=== PATIENT | male | born 1950 | race American Indian/Alaskan Native ===

== ENCOUNTER 2016-05-28 07:37 | Emergency (ER) | payer MEDICARE ==
--- NOTE | 2016-05-28 10:59 | Emergency Department Report ---
ED Back Pain/Injury HPI - General Chief Complaint: Back Pain/Injury Stated Complaint: BACK PAIN Time Seen by Provider: 05/28/16 10:58 Source: patient Limitations: No Limitations - History of Present Illness Initial Comments: 65-year-old male past medical history diabetes, DVT on Coumadin presents with complaint of right-sided back strain status post straining his back while gardening 3 days ago. Patient states he feels bothersome achiness and soreness in his right side back. Denies any falls no direct trauma denies any fever or chills no dysuria no hematuria reported by patient. Alert and oriented 3 not in acute distress denies any other injuries. States he was pulling a rake when he felt spasming and severe pain in his right side back. She denies any upper or lower extremity paresthesias denies any saddle paresthesias denies any loss of bladder or bowel control. Patient is fully ambulatory without any assistance. MD Complaint: back pain Onset/Timin -: days(s) Similar Symptoms Previously: No Place: home Radiation: none Severity: moderate Severity scale (0 -10): 6 Quality: sharp Improves With: immobilization Worsens With: none Context: while lifting, turning/twisting Associated Symptoms: denies other symptoms - Related Data Home Medications Medication Instructions Recorded Confirmed Last Taken Hydrochlorothiazide 12.5 mg PO QDAY 02/05/13 09/21/15 11/24/14 Insulin Aspart Prot/Aspart 45 unit SQ QPM 02/05/13 09/21/15 11/23/14 [NovoLOG Mix 70/30 VIAL] Insulin Aspart Prot/Aspart 70 units SC QAM 02/05/13 09/21/15 11/24/14 [NovoLOG Mix 70/30 VIAL] Lisinopril [Zestril TAB] 20 mg PO QDAY 02/05/13 09/21/15 11/24/14 Simvastatin 40 mg PO QHS 02/05/13 09/21/15 11/23/14 metFORMIN [Glucophage] 500 mg PO BID 02/05/13 09/21/15 11/24/14 Febuxostat (Nf) [Uloric (Nf)] 40 mg PO PRN 09/21/15 09/21/15 Unknown Insulin Lispro [HumaLOG VIAL] 3 units SQ AC 09/21/15 09/21/15 Unknown [place]-3/Dha/Epa/Fish Oil [[place]-3 1 gram PO DAILY 09/21/15 09/21/15 Unknown Fish Oil 1,000 mg Sftg] Tamsulosin [Flomax] 0.4 mg PO DAILY 09/21/15 09/21/15 Unknown Warfarin [Coumadin] 0.5 tab PO 2XW 09/21/15 09/21/15 Unknown Warfarin [Coumadin] 3 tab PO 5XW 09/21/15 09/21/15 Unknown Previous Rx's Medication Instructions Recorded Last Taken Type Colchicine [Colcrys] 0.6 mg PO BID #10 tab 09/21/15 Unknown Rx Dexamethasone [Decadron] 4 mg PO DAILY #5 tablet 09/21/15 Unknown Rx HYDROcodone/APAP 5-325 [[place] 1 each PO Q6HR PRN #12 tablet 09/21/15 Unknown Rx 5/325] Acetaminophen [Acetaminophen TAB] 500 mg PO Q6HR PRN #25 tablet 05/28/16 Unknown Rx Cyclobenzaprine [Flexeril] 10 mg PO TID PRN #12 tablet 05/28/16 Unknown Rx Allergies Allergy/AdvReac Type Severity Reaction Status Date / Time No Known Allergies Allergy Verified 05/08/14 08:39 ED Review of Systems ROS: Stated complaint: BACK PAIN Other details as noted in HPI Constitutional: denies: chills, fever Eyes: denies: eye pain, eye discharge, vision change ENT: denies: ear pain, throat pain Respiratory: denies: cough, shortness of breath, wheezing Cardiovascular: denies: chest pain, palpitations Endocrine: no symptoms reported Gastrointestinal: denies: abdominal pain, nausea, diarrhea Genitourinary: denies: urgency, dysuria Musculoskeletal: back pain. denies: joint swelling, arthralgia Skin: denies: rash, lesions Neurological: denies: headache, weakness, paresthesias Psychiatric: denies: anxiety, depression Hematological/Lymphatic: denies: easy bleeding, easy bruising ED Past Medical Hx - Past Medical History Previous Medical History?: Yes Hx Hypertension: Yes Hx Heart Attack/AMI: No Hx Congestive Heart Failure: No Hx Diabetes: No Hx Deep Vein Thrombosis: Yes Hx Pulmonary Embolism: Yes Hx Liver Disease: No Hx Renal Disease: No Hx Seizures: No Hx Kidney Stones: No Hx Asthma: No Hx COPD: No Hx Tuberculosis: No Hx Dementia: No Hx HIV: No Additional medical history: high cholesterol. PE. DVT - Surgical History Past Surgical History?: No Hx Coronary Stent: No Hx Pacemaker: No Hx Internal Defibrillator: No - Social History Smoking Status: Former Smoker Substance Use Type: None - Medications Home Medications: Home Medications Medication Instructions Recorded Confirmed Last Taken Type Hydrochlorothiazide 12.5 mg PO QDAY 02/05/13 09/21/15 11/24/14 History Insulin Aspart Prot/Aspart 45 unit SQ QPM 02/05/13 09/21/15 11/23/14 History [NovoLOG Mix 70/30 VIAL] Insulin Aspart Prot/Aspart 70 units SC QAM 02/05/13 09/21/15 11/24/14 History [NovoLOG Mix 70/30 VIAL] Lisinopril [Zestril TAB] 20 mg PO QDAY 02/05/13 09/21/15 11/24/14 History Simvastatin 40 mg PO QHS 02/05/13 09/21/15 11/23/14 History metFORMIN [Glucophage] 500 mg PO BID 02/05/13 09/21/15 11/24/14 History Colchicine [Colcrys] 0.6 mg PO BID #10 tab 09/21/15 Unknown Rx Dexamethasone [Decadron] 4 mg PO DAILY #5 tablet 09/21/15 Unknown Rx Febuxostat (Nf) [Uloric (Nf)] 40 mg PO PRN 09/21/15 09/21/15 Unknown History HYDROcodone/APAP 5-325 [[place] 1 each PO Q6HR PRN #12 tablet 09/21/15 Unknown Rx 5/325] Insulin Lispro [HumaLOG VIAL] 3 units SQ AC 09/21/15 09/21/15 Unknown History [place]-3/Dha/Epa/Fish Oil [[place]-3 1 gram PO DAILY 09/21/15 09/21/15 Unknown History Fish Oil 1,000 mg Sftg] Tamsulosin [Flomax] 0.4 mg PO DAILY 09/21/15 09/21/15 Unknown History Warfarin [Coumadin] 0.5 tab PO 2XW 09/21/15 09/21/15 Unknown History Warfarin [Coumadin] 3 tab PO 5XW 09/21/15 09/21/15 Unknown History Acetaminophen [Acetaminophen TAB] 500 mg PO Q6HR PRN #25 tablet 05/28/16 Unknown Rx Cyclobenzaprine [Flexeril] 10 mg PO TID PRN #12 tablet 05/28/16 Unknown Rx ED Physical Exam - General Limitations: No Limitations General appearance: alert, in no apparent distress - Head Head exam: Present: atraumatic, normocephalic - Eye Eye exam: Present: normal appearance, PERRL, EOMI - ENT ENT exam: Present: mucous membranes moist - Neck Neck exam: Present: normal inspection - Respiratory Respiratory exam: Present: normal lung sounds bilaterally. Absent: respiratory distress - Cardiovascular Cardiovascular Exam: Present: regular rate, normal rhythm. Absent: systolic murmur, diastolic murmur, rubs, gallop - GI/Abdominal GI/Abdominal exam: Present: soft, normal bowel sounds - Rectal Rectal exam: Present: deferred - Extremities Exam Extremities exam: Present: normal inspection, full ROM - Back Exam Back exam: Present: normal inspection, full ROM, CVA tenderness (R), muscle spasm, paraspinal tenderness (reproducible tenderness in posterior axillary line mid back region mild right-sided flank tenderness on percussion. no abd. wall, flank or back ecchymosis) - Neurological Exam Neurological exam: Present: alert, oriented X3 - Psychiatric Psychiatric exam: Present: normal affect, normal mood - Skin Skin exam: Present: warm, dry, intact, normal color. Absent: rash ED Course Vital Signs 05/28/16 05/28/16 08:16 11:30 Temperature 98.6 F Pulse Rate 67 Respiratory 20 20 Rate Blood Pressure 113/60 O2 Sat by Pulse 100 Oximetry ED Medical Decision Making - Lab Data Result diagrams: 05/28/16 11:14 05/28/16 11:14 - Medical Decision Making A/P: Back muscle strain 1-Tylenol and Flexeril when necessary 2-I discussed case with Dr. Gongora reviewed all labs and CT with Dr. cam before discharge no evidence of retroperitoneal bleed 3-patient has subtherapeutic INR at 1.6 patient claims that he is compliant with his Coumadin I encouraged him to take his Coumadin as scheduled and to follow up with his primary doctor 4-patient's vital signs stable before discharge- Critical care attestation.: If time is entered above; I have spent that time in minutes in the direct care of this critically ill patient, excluding procedure time. ED Disposition Clinical Impression: Strain of muscle, fascia and tendon of lower back, initial encounter Muscle strain of right upper back Qualifiers: Encounter type: initial encounter Qualified Code(s): S29.012A - Strain of muscle and tendon of back wall of thorax, initial encounter Disposition: DISCHARGED TO HOME OR SELFCARE Is pt being admited?: No Does the pt Need Aspirin: No Condition: Stable Instructions: Muscle Strain (ED), Low Back Strain (ED) Prescriptions: Acetaminophen [Acetaminophen TAB] 500 mg PO Q6HR PRN #25 tablet PRN Reason: Pain Cyclobenzaprine [Flexeril] 10 mg PO TID PRN #12 tablet PRN Reason: Muscle Spasm Referrals: ERIC LAMAR JR, MD [Staff Physician] - 3-5 Days [facility] [Outside] - 3-5 Days Time of Disposition: 15:55
[2016-05-28] MEDS ORDERED: TYLENOL PO ONE (11:01)
[2016-05-28 11:45] LABS: Basophils % (Auto) 0.5 % (0.0-1.8); Eosinophils % (Auto) 2.1 % (0.0-4.3); Hematocrit 36.4 % (35.5-45.6); Hemoglobin 11.6 gm/dl (11.8-15.2); Mean Corpuscular HGB Conc 32 % (32-34); Mean Corpuscular Hemoglobin 28 pg (28-32); Mean Corpuscular Volume 88 fl (84-94); Platelet Count 347 K/mm3 (140-440); Red Blood Count 4.15 M/mm3 (3.65-5.03); Red Cell Distribution Width 15.3 % (13.2-15.2); White Blood Count 7.7 K/mm3 (4.5-11.0)
[2016-05-28 11:56] LABS: BUN/Creatinine Ratio 20.58; Calcium 9.2 mg/dL (8.4-10.2); Chloride 102.3 mmol/L (98-107); Potassium 4.4 mmol/L (3.6-5.0)
[2016-05-28 11:57] LABS: Alanine Aminotransferase 17 units/L (7-56); Albumin 3.3 g/dL (3.9-5); Albumin/Globulin Ratio 0.8 %; Alkaline Phosphatase 71 units/L (35-129); Bilirubin,Direct < 0.2 mg/dL (0-0.2); Bilirubin,Total 0.3 mg/dL (0.1-1.2); Total Protein 7.5 g/dL (6.3-8.2)
[2016-05-28 11:59] LABS: INR 1.6 (0.87-1.13)
[2016-05-28 12:33] LABS: Bilirubin,Urine NEG (Negative); Blood,Urine NEG (Negative); Ketones,Urine NEG (Negative); Leukocyte Esterase,Urine NEG (Negative); Mucus,Urine FEW /HPF; Nitrite,Urine NEG (Negative); WBC,Urine < 1.0 /HPF (0.0-6.0)
--- NOTE | 2016-05-28 12:54 | Cat Scan Report ---
CT ABDOMEN AND PELVIS WITHOUT CONTRAST: 05/28/16 CLINICAL:Right flank pain. TECHNIQUE: Volumetric acquisition and 1.25 millimeter scan reconstructions from the lung bases through the iliac crest. The study was performed without oral contrast. FINDINGS: Abdomen:Normal size kidneys with nondilated renal collecting systems and ureters. No urinary calculus identified. Bilateral nonspecific perinephric stranding. A 1.9 cm cyst in the midportion of the right kidney and a less than 1 cm left upper pole renal cyst. Borderline large liver but normal liver density in the liver mass. The gallbladder and bile ducts are normal. Normal stomach and duodenum. The pancreas is fatty replaced but otherwise unremarkable. The spleen is normal. Normal adrenal glands. Mild aortic ossification and tortuosity. The inferior vena cava is normal. The small bowel and colon are normal. The appendix is normal. No ascites and no pneumoperitoneum. Pelvis: Normal urinary bladder. Moderate prostate enlargement. Normal rectum and sigmoid colon. No pelvic fluid or lymphadenopathy. IMPRESSION: 1. Nonspecific bilateral perinephric stranding. 2. No urinary calculus. 3. Borderline large liver. 4. Bilateral small renal cysts. 5. Prostate enlargement.
[2016-05-28 16:06] VITALS: BP 143/87
== END 2016-05-28 16:04 | disposition home or self-care (01) ==
LOC: ED 07:37
DX: S39.012A Strain of muscle, fascia and tendon of lower back, initial encounter (principal); S29.012A Strain of muscle and tendon of back wall of thorax, initial encounter; I10 Essential (primary) hypertension; E11.9 Type 2 diabetes mellitus without complications; Z86.718 Personal history of other venous thrombosis and embolism; Z86.711 Personal history of pulmonary embolism; E78.00 Pure hypercholesterolemia, unspecified; Z87.891 Personal history of nicotine dependence; X58.XXXA Exposure to other specified factors, initial encounter; Y93.89 Activity, other specified; Y99.8 Other external cause status; Y92.89 Other specified places as the place of occurrence of the external cause
CPT/HCPCS: 36415; 74176; 80048; 80074; 81001; 82550; 85025; 85610; 87086

== ENCOUNTER 2016-07-27 07:30 | Emergency (ER) | payer MEDICARE ==
[2016-07-27 07:57] VITALS: BP 144/71
[2016-07-27] MEDS ORDERED: MOTRIN PO ONE (10:27)
--- NOTE | 2016-07-27 10:43 | XRay Report ---
RIGHT WRIST, 2 VIEWS History: Right wrist pain and swelling. Findings: Mild diffuse soft tissue swelling is identified. 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 No evidence for fracture, dislocation or ligamentous injury. Impression: Degenerative changes. Soft tissue swelling. No acute injury is appreciated.
--- NOTE | 2016-07-27 10:44 | XRay Report ---
RIGHT HAND, 2 VIEWS History: Right hand pain and swelling. Findings: Mild diffuse soft tissue swelling is suspected. The bony structures and joint spaces of the right hand are within normal limits. No fracture, malalignment or bony erosions. Impression: Nonspecific soft tissue swelling.
== END 2016-07-27 11:25 | disposition home or self-care (01) ==
LOC: ED 07:30
DX: M10.9 Gout, unspecified (principal); I10 Essential (primary) hypertension; E78.00 Pure hypercholesterolemia, unspecified; Z86.718 Personal history of other venous thrombosis and embolism; Z86.711 Personal history of pulmonary embolism; Z87.891 Personal history of nicotine dependence; Z79.01 Long term (current) use of anticoagulants
CPT/HCPCS: 73100; 73120; 96372; 99283; J2920

== ENCOUNTER 2016-09-09 11:58 | Inpatient (IN) | payer MEDICARE ==
[2016-09-09 13:00] LABS: Basophils % (Auto) 0.6 % (0.0-1.8); Eosinophils % (Auto) 1.4 % (0.0-4.3); Hematocrit 35.3 % (35.5-45.6); Hemoglobin 11.2 gm/dl (11.8-15.2); Mean Corpuscular HGB Conc 32 % (32-34); Mean Corpuscular Hemoglobin 27 pg (28-32); Mean Corpuscular Volume 85 fl (84-94); Platelet Count 331 K/mm3 (140-440); Red Blood Count 4.13 M/mm3 (3.65-5.03); Red Cell Distribution Width 18.4 % (13.2-15.2); White Blood Count 11.1 K/mm3 (4.5-11.0)
[2016-09-09 13:17] LABS: Albumin 3.7 g/dL (3.9-5); Albumin/Globulin Ratio 1.2 %; BUN/Creatinine Ratio 18.1; Bilirubin,Total 0.3 mg/dL (0.1-1.2); Calcium 8.8 mg/dL (8.4-10.2); Chloride 103.1 mmol/L (98-107); Potassium 5.6 mmol/L (3.6-5.0); Total Protein 6.7 g/dL (6.3-8.2)
[2016-09-09 13:19] LABS: INR 1.62 (0.87-1.13)
[2016-09-09 13:20] LABS: Partial Thromboplastin Time 33.9 Sec. (24.2-36.6)
--- NOTE | 2016-09-09 13:36 | Emergency Department Report ---
ED General Adult HPI - General Chief complaint: Weakness Stated complaint: LOW BP Time Seen by Provider: 09/09/16 13:01 Source: patient, family Mode of arrival: Wheelchair Limitations: No Limitations - History of Present Illness Initial comments: 66-year-old male presents to the emergency department for evaluation of low blood pressure. Patient says for the past 4 days he has been feeling "sluggish ". He was seen by his primary care physician 2 days ago and was told to cut his lisinopril dose in half. Patient states he has done this the past 2 days. He states that yesterday his blood pressure was doing well, but this morning his low pressure was 89/36 at home. He denies chest pain, difficulty breathing , or lightheadedness. He is also complaining of gout pain in his left foot. Patient describes achy pain for the past 2 days. He has been taking his medication for this and states it is somewhat better. There are no other complaints. -: Gradual, days(s) (4) Location: left, lower extremity Radiation: non-radiation Severity scale (0 -10): 6 Quality: aching Consistency: constant Improves with: medication Worsens with: none Associated Symptoms: denies other symptoms Treatments Prior to Arrival: none - Related Data Home Medications Medication Instructions Recorded Confirmed Last Taken Hydrochlorothiazide 12.5 mg PO QDAY 02/05/13 09/21/15 11/24/14 Insulin Aspart Prot/Aspart(Nf) 45 unit SQ QPM 02/05/13 09/21/15 11/23/14 [NovoLOG Mix 70/30 VIAL] Insulin Aspart Prot/Aspart(Nf) 70 units SC QAM 02/05/13 09/21/15 11/24/14 [NovoLOG Mix 70/30 VIAL] Lisinopril [Zestril TAB] 20 mg PO QDAY 02/05/13 09/21/15 11/24/14 Simvastatin 40 mg PO QHS 02/05/13 09/21/15 11/23/14 metFORMIN [Glucophage] 500 mg PO BID 02/05/13 09/21/15 11/24/14 Febuxostat (Nf) [Uloric (Nf)] 40 mg PO PRN 09/21/15 09/21/15 Unknown Insulin Lispro [HumaLOG VIAL] 3 units SQ AC 09/21/15 09/21/15 Unknown [place]-3/Dha/Epa/Fish Oil [[place]-3 1 gram PO DAILY 09/21/15 09/21/15 Unknown Fish Oil 1,000 mg Sftg] Tamsulosin [Flomax] 0.4 mg PO DAILY 09/21/15 09/21/15 Unknown Warfarin [Coumadin] 0.5 tab PO 2XW 09/21/15 09/21/15 Unknown Warfarin [Coumadin] 3 tab PO 5XW 09/21/15 09/21/15 Unknown Previous Rx's Medication Instructions Recorded Last Taken Type Colchicine [Colcrys] 0.6 mg PO BID #10 tab 09/21/15 Unknown Rx Dexamethasone [Decadron] 4 mg PO DAILY #5 tablet 09/21/15 Unknown Rx HYDROcodone/APAP 5-325 [[place] 1 each PO Q6HR PRN #12 tablet 09/21/15 Unknown Rx 5/325] Acetaminophen [Acetaminophen TAB] 500 mg PO Q6HR PRN #25 tablet 05/28/16 Unknown Rx Cyclobenzaprine [Flexeril] 10 mg PO TID PRN #12 tablet 05/28/16 Unknown Rx Ibuprofen [Motrin 600 MG tab] 600 mg PO Q8H PRN #15 tablet 07/27/16 Unknown Rx predniSONE [Deltasone] 40 mg PO QDAY 5 Days 07/27/16 Unknown Rx Allergies Allergy/AdvReac Type Severity Reaction Status Date / Time No Known Allergies Allergy Verified 07/27/16 07:52 ED Review of Systems ROS: Stated complaint: LOW BP Other details as noted in HPI Comment: All other systems reviewed and negative Constitutional: see HPI Musculoskeletal: arthralgia (left foot) ED Past Medical Hx - Past Medical History Previous Medical History?: Yes Hx Hypertension: Yes Hx Heart Attack/AMI: No Hx Congestive Heart Failure: No Hx Diabetes: No Hx Deep Vein Thrombosis: Yes Hx Pulmonary Embolism: Yes Hx Liver Disease: No Hx Renal Disease: No Hx Seizures: No Hx Kidney Stones: No Hx Asthma: No Hx COPD: No Hx Tuberculosis: No Hx Dementia: No Hx HIV: No Additional medical history: high cholesterol. gout - Surgical History Past Surgical History?: No Hx Coronary Stent: No Hx Pacemaker: No Hx Internal Defibrillator: No - Family History Family history: no significant - Social History Smoking Status: Former Smoker Substance Use Type: Non Opiate Pain, Prescribed - Medications Home Medications: Home Medications Medication Instructions Recorded Confirmed Last Taken Type Hydrochlorothiazide 12.5 mg PO QDAY 02/05/13 09/21/15 11/24/14 History Insulin Aspart Prot/Aspart(Nf) 45 unit SQ QPM 02/05/13 09/21/15 11/23/14 History [NovoLOG Mix 70/30 VIAL] Insulin Aspart Prot/Aspart(Nf) 70 units SC QAM 02/05/13 09/21/15 11/24/14 History [NovoLOG Mix 70/30 VIAL] Lisinopril [Zestril TAB] 20 mg PO QDAY 02/05/13 09/21/15 11/24/14 History Simvastatin 40 mg PO QHS 02/05/13 09/21/15 11/23/14 History metFORMIN [Glucophage] 500 mg PO BID 02/05/13 09/21/15 11/24/14 History Colchicine [Colcrys] 0.6 mg PO BID #10 tab 09/21/15 Unknown Rx Dexamethasone [Decadron] 4 mg PO DAILY #5 tablet 09/21/15 Unknown Rx Febuxostat (Nf) [Uloric (Nf)] 40 mg PO PRN 09/21/15 09/21/15 Unknown History HYDROcodone/APAP 5-325 [[place] 1 each PO Q6HR PRN #12 tablet 09/21/15 Unknown Rx 5/325] Insulin Lispro [HumaLOG VIAL] 3 units SQ AC 09/21/15 09/21/15 Unknown History [place]-3/Dha/Epa/Fish Oil [[place]-3 1 gram PO DAILY 09/21/15 09/21/15 Unknown History Fish Oil 1,000 mg [facility]] Tamsulosin [Flomax] 0.4 mg PO DAILY 09/21/15 09/21/15 Unknown History Warfarin [Coumadin] 0.5 tab PO 2XW 09/21/15 09/21/15 Unknown History Warfarin [Coumadin] 3 tab PO 5XW 09/21/15 09/21/15 Unknown History Acetaminophen [Acetaminophen TAB] 500 mg PO Q6HR PRN #25 tablet 05/28/16 Unknown Rx Cyclobenzaprine [Flexeril] 10 mg PO TID PRN #12 tablet 05/28/16 Unknown Rx Ibuprofen [Motrin 600 MG tab] 600 mg PO Q8H PRN #15 tablet 07/27/16 Unknown Rx predniSONE [Deltasone] 40 mg PO QDAY 5 Days 07/27/16 Unknown Rx ED Physical Exam - General Limitations: No Limitations General appearance: alert, in no apparent distress - Head Head exam: Present: atraumatic, normocephalic - Eye Eye exam: Present: normal appearance, PERRL, EOMI - ENT ENT exam: Present: normal exam, normal orophraynx, mucous membranes moist - Neck Neck exam: Present: normal inspection, full ROM. Absent: tenderness - Respiratory Respiratory exam: Present: normal lung sounds bilaterally. Absent: respiratory distress - Cardiovascular Cardiovascular Exam: Present: regular rate, normal rhythm, normal heart sounds - GI/Abdominal GI/Abdominal exam: Present: soft, distended, normal bowel sounds. Absent: tenderness - Extremities Exam Extremities exam: Present: normal inspection, full ROM. Absent: tenderness - Back Exam Back exam: Present: normal inspection, full ROM. Absent: tenderness - Neurological Exam Neurological exam: Present: alert, oriented X3. Absent: motor sensory deficit - Skin Skin exam: Present: warm, dry, intact ED Course Vital Signs 09/09/16 09/09/16 09/09/16 12:22 12:30 12:53 Temperature 98.2 F 97.9 F Pulse Rate 73 77 Respiratory 18 26 H Rate Blood Pressure 84/46 Blood Pressure 100/59 [Left] O2 Sat by Pulse 98 98 98 Oximetry ED Medical Decision Making - Lab Data Result diagrams: 09/09/16 12:42 09/09/16 12:42 - EKG Data -: EKG Interpreted by Me EKG shows normal: sinus rhythm, axis, intervals, ST-T waves Rate: normal - EKG Data When compared to previous EKG there are: no significant change Interpretation: unchanged when compared t (02/03/2013), [facility] - Medical Decision Making Laboratory results reviewed and discussed with the patient. His creatinine is much worse than previously recorded in this facility. I spoken with Dr. Ahmadi, patient's primary doctor, and Dr. Espitia, nephrology. Starting IV fluids. Patient is to be admitted by the hospitalist. - Differential Diagnosis hypotension, medication reaction, occult infection Critical care attestation.: If time is entered above; I have spent that time in minutes in the direct care of this critically ill patient, excluding procedure time. ED Disposition Clinical Impression: Acute on chronic renal insufficiency, Hypotension Disposition: 09 OP ADMIT IP TO THIS HOSP Is pt being admited?: Yes Condition: Stable Referrals: PRIMARY CARE, [Primary Care Provider] - 3-5 Days Time of Disposition: 14:19
[2016-09-09] MEDS ORDERED: NACL 0.9% 1000 ML 1,000 ML IV ONE (13:57)
--- NOTE | 2016-09-09 14:57 | History and Physical Report ---
History of Present Illness Chief complaint: I feel weak and sluggish History of present illness: 66 YO Male with HTN, DVT/PE, HLD, gout, Obesity, DM, BPH, Metabolic Syndreme presents to ED for evaluation. Pt states that he has been feeling tired and sluggish with worsening symptoms over the past 2 days. Pt states that he checked his blood pressure at home and found it to be 89/36. Pt presented to ED for evaluation. Pt seen and evaluated in ED and found to have systolic in 90's. Pt treated with supportive care, IVF, with mild improvement. Pt denies fever, chills, CP, Palpitaitons, NVD, Syncope, Falls, productive cough, or recent ill contacts. Past History Past Medical History: diabetes, DVT, hypertension, hyperlipidemia, pulmonary embolism Past Surgical History: No surgical history, Other (reviewed) Social history: single, Lives alone. denies: smoking, alcohol abuse, prescription drug abuse Family history: diabetes, hypertension Medications and Allergies Allergies Allergy/AdvReac Type Severity Reaction Status Date / Time No Known Allergies Allergy Verified 07/27/16 07:52 Home Medications Medication Instructions Recorded Confirmed Last Taken Type Hydrochlorothiazide 12.5 mg PO QDAY 02/05/13 09/21/15 11/24/14 History Insulin Aspart Prot/Aspart(Nf) 45 unit SQ QPM 02/05/13 09/21/15 11/23/14 History [NovoLOG Mix 70/30 VIAL] Insulin Aspart Prot/Aspart(Nf) 70 units SC QAM 02/05/13 09/21/15 11/24/14 History [NovoLOG Mix 70/30 VIAL] Lisinopril [Zestril TAB] 20 mg PO QDAY 02/05/13 09/21/15 11/24/14 History Simvastatin 40 mg PO QHS 02/05/13 09/21/15 11/23/14 History metFORMIN [Glucophage] 500 mg PO BID 02/05/13 09/21/15 11/24/14 History Colchicine [Colcrys] 0.6 mg PO BID #10 tab 09/21/15 Unknown Rx Dexamethasone [Decadron] 4 mg PO DAILY #5 tablet 09/21/15 Unknown Rx Febuxostat (Nf) [Uloric (Nf)] 40 mg PO PRN 09/21/15 09/21/15 Unknown History HYDROcodone/APAP 5-325 [[place] 1 each PO Q6HR PRN #12 tablet 09/21/15 Unknown Rx 5/325] Insulin Lispro [HumaLOG VIAL] 3 units SQ AC 09/21/15 09/21/15 Unknown History [place]-3/Dha/Epa/Fish Oil [[place]-3 1 gram PO DAILY 09/21/15 09/21/15 Unknown History Fish Oil 1,000 mg Sftg] Tamsulosin [Flomax] 0.4 mg PO DAILY 09/21/15 09/21/15 Unknown History Warfarin [Coumadin] 0.5 tab PO 2XW 09/21/15 09/21/15 Unknown History Warfarin [Coumadin] 3 tab PO 5XW 09/21/15 09/21/15 Unknown History Acetaminophen [Acetaminophen TAB] 500 mg PO Q6HR PRN #25 tablet 05/28/16 Unknown Rx Cyclobenzaprine [Flexeril] 10 mg PO TID PRN #12 tablet 05/28/16 Unknown Rx Ibuprofen [Motrin 600 MG tab] 600 mg PO Q8H PRN #15 tablet 07/27/16 Unknown Rx predniSONE [Deltasone] 40 mg PO QDAY 5 Days 07/27/16 Unknown Rx Active Meds: Active Medications Sodium Chloride (Nacl 0.9% 1000 Ml) 1,000 mls @ 999 mls/hr IV BOLUS ONE Stop: 09/09/16 14:57 Review of Systems All systems: negative Constitutional: weakness, other (low blood pressure) Exam - Constitutional Vitals: Temp Pulse Resp BP Pulse Ox 97.9 F 77 26 H 100/59 98 09/09/16 12:30 09/09/16 12:30 09/09/16 12:30 09/09/16 12:30 09/09/16 12:53 General appearance: Present: mild distress - EENT Eyes: Present: PERRL ENT: hearing intact, clear oral mucosa - Neck Neck: Present: supple, normal ROM - Respiratory Respiratory effort: normal Respiratory: bilateral: CTA - Cardiovascular Heart Sounds: Present: S1 & S2. Absent: rub, click - Extremities Extremities: pulses symmetrical, No edema Extremity abnormal: pulses diminished Peripheral Pulses: within normal limits - Abdominal General gastrointestinal: Present: soft, non-tender, non-distended, normal bowel sounds Male genitourinary: Present: normal - Rectal Rectal Exam: normal exam-external/orifice - Integumentary Integumentary: Present: clear, dry, decreased turgor - Musculoskeletal Musculoskeletal: generalized weakness - Psychiatric Psychiatric: appropriate mood/affect, intact judgment & insight - Neurologic Neurologic: CNII-XII intact, moves all extremities Results - Labs CBC & Chem 7: 09/09/16 12:42 09/09/16 12:42 Labs: Abnormal lab results 09/09/16 09/09/16 09/09/16 Range/Units 12:01 12:42 12:42 WBC 11.1 H (4.5-11.0) K/mm3 Hgb 11.2 L (11.8-15.2) gm/dl Hct 35.3 L (35.5-45.6) % MCH 27 L (28-32) pg RDW 18.4 H (13.2-15.2) % [place] % (Auto) 9.0 H (0.0-7.3) % [place] # 1.0 H (0.0-0.8) K/mm3 Seg Neutrophils % 73.6 H (40.0-70.0) % Seg Neutrophils # 8.1 H (1.8-7.7) K/mm3 PT (12.2-14.9) Sec. INR (0.87-1.13) Sodium 134 L (137-145) mmol/L Potassium 5.6 H (3.6-5.0) mmol/L Carbon Dioxide 16 L (22-30) mmol/L BUN 67 H (9-20) mg/dL Creatinine 3.7 H (0.8-1.5) mg/dL Glucose 157 H (75-100) mg/dL POC Glucose 135 H (70-105) Albumin 3.7 L (3.9-5) g/dL 09/09/16 Range/Units 12:42 WBC (4.5-11.0) K/mm3 Hgb (11.8-15.2) gm/dl Hct (35.5-45.6) % MCH (28-32) pg RDW (13.2-15.2) % [place] % (Auto) (0.0-7.3) % [place] # (0.0-0.8) K/mm3 Seg Neutrophils % (40.0-70.0) % Seg Neutrophils # (1.8-7.7) K/mm3 PT 20.1 H (12.2-14.9) Sec. INR 1.62 H (0.87-1.13) Sodium (137-145) mmol/L Potassium (3.6-5.0) mmol/L Carbon Dioxide (22-30) mmol/L BUN (9-20) mg/dL Creatinine (0.8-1.5) mg/dL Glucose (75-100) mg/dL POC Glucose (70-105) Albumin (3.9-5) g/dL Assessment and Plan - Patient Problems (1) Acute on chronic renal insufficiency Current Visit: Yes Status: Acute Plan to address problem: IVF, monitor uop q shift, urine electrolytes, renal ultrasound, Nephrology consulted (2) Hyperkalemia Current Visit: Yes Status: Acute Plan to address problem: IVF, repeat bmp, monitor uop q shift, (3) Pulmonary embolism Current Visit: No Status: Acute Qualifiers: Pulmonary embolism type: P Chronicity: C Acute cor pulmonale presence: A Plan to address problem: resume coumadin, suppprotive care, therapeutic lovenox until INR therapeutic, hematology consulted, (4) Right leg DVT Current Visit: No Status: Acute Qualifiers: Affected thrombotic vein of extremity: A Chronicity: C Plan to address problem: Therapeutic anticoagulation, resume coumadin, (5) DVT prophylaxis Current Visit: Yes Status: Acute
[2016-09-09] MEDS ORDERED: DUONEB *Not for PRN Use IH (15:00)
[2016-09-09] MEDS ORDERED: ZOFRAN IV PRN (15:00)
[2016-09-09] MEDS ORDERED: TYLENOL PO PRN (15:00)
[2016-09-09] MEDS ORDERED: NACL 0.45% 2,000 ML IV SCH (16:00)
[2016-09-09] MEDS ORDERED: PROVENTIL IH PRN (16:10)
[2016-09-09] MEDS: LOVENOX SUB-Q SCH (18:05)
[2016-09-10] MEDS: LOVENOX SUB-Q SCH (05:17)
[2016-09-10] MEDS: NACL 0.45% 1000 ML 1,000 ML IV SCH ×2 (06:19→18:36)
[2016-09-10 07:41] LABS: Bilirubin,Urine NEG (Negative); Blood,Urine NEG (Negative); Ketones,Urine NEG (Negative); Leukocyte Esterase,Urine NEG (Negative); Mucus,Urine FEW /HPF; Nitrite,Urine NEG (Negative); Protein,Urine <15 mg/dL mg/dL (Negative); Urobilinogen,Urine < 2.0 mg/dL (<2.0)
--- NOTE | 2016-09-10 11:24 | Ultrasound Report ---
RENAL ULTRASOUND: 09/09/16 15:04:00 CLINICAL: Renal failure. FINDINGS: High resolution ultrasound demonstrated normal nondilated renal collecting systems. Moderate increased echogenicity of the kidneys and mild bilateral renal cortical irregularity. Bilateral renal cysts. A complex anterior mid right cyst measures 1.5 x 1.3 x 1.6 cm. It has echogenic septations. A left upper pole cyst measures 1.3 x 0.7 x 0.9 cm. The right kidney measures 12.4 x 5.5 x 6.1-cm. The renal parenchyma measures 1.4-cm in thickness. The left kidney measures 12.7 x 5.5 x 5.3-cm. The renal parenchyma measures 1.4-cm in thickness. The urinary bladder is minimally distended with relatively thick wall. An enlarged prostate measures approximately 4.1 x 3.2 x 1.9 cm. IMPRESSION: Bilateral medical renal disease and no hydronephrosis. Bilateral renal cysts.
[2016-09-10 13:51] LABS: INR 1.98 (0.87-1.13)
--- NOTE | 2016-09-10 14:07 | Progress Note ---
Assessment and Plan Assessment and plan: --Hyperkalemia Current Visit: Yes Status: Acute Plan to address problem: Repeat potassium level ,adjust treatment as needed -- Acute on chronic kidney disease stage III Current Visit: Yes Status: Acute Plan to address problem: IV hydration, input output monitoring, closely monitor renal function, avoid nephrotoxic medications, consider nephrology evaluation if needed, Renal ultrasound medical renal disease --History of Pulmonary embolism Current Visit: No Status: Acute Qualifiers: Pulmonary embolism type: P Chronicity: C Acute cor pulmonale presence: A Plan to address problem: Subtherapeutic INR ,resume coumadin, and therapeutic lovenox Closely monitor INR , target level 2-3 , follow-up hematology evaluation -- Right leg DVT Current Visit: No Status: Acute Qualifiers: Affected thrombotic vein of extremity: A Chronicity: C Plan to address problem: Subtherapeutic INR ,resume coumadin, Closely monitor the patient and adjust management as needed Patient's condition treatment plan discussed in detail with the patient as well as his nurse History Interval history: Patient seen and evaluated medical records reviewed Admitted with hypotension, acute on chronic renal failure Patient feels slightly better, alert awake oriented 3 not in acute distress vital signs reviewed Hospitalist Physical - Constitutional Vitals: Temp Pulse Resp BP Pulse Ox 98.4 F 58 L 22 128/80 98 09/10/16 08:00 09/10/16 08:00 09/10/16 08:00 09/10/16 08:00 09/10/16 08:54 General appearance: Present: no acute distress, well-nourished, obese - EENT Eyes: Present: PERRL, EOM intact - Neck Neck: Present: supple, normal ROM - Respiratory Respiratory effort: normal Respiratory: bilateral: diminished, negative: rales, rhonchi, wheezing - Cardiovascular Rhythm: regular Heart Sounds: Present: S1 & S2 - Extremities Extremities: no ischemia, pulses intact, pulses symmetrical Peripheral Pulses: within normal limits - Abdominal General gastrointestinal: soft, non-tender, non-distended, normal bowel sounds - Integumentary Integumentary: Present: clear, warm - Psychiatric Psychiatric: appropriate mood/affect, cooperative - Neurologic Neurologic: CNII-XII intact, moves all extremities Results - Labs CBC & Chem 7: 09/09/16 12:42 09/09/16 12:42 Labs: Laboratory Last Values WBC 11.1 K/mm3 (4.5-11.0) H 09/09/16 12:42 RBC 4.13 M/mm3 (3.65-5.03) 09/09/16 12:42 Hgb 11.2 gm/dl (11.8-15.2) L 09/09/16 12:42 Hct 35.3 % (35.5-45.6) L 09/09/16 12:42 MCV 85 fl (84-94) 09/09/16 12:42 MCH 27 pg (28-32) L 09/09/16 12:42 MCHC 32 % (32-34) 09/09/16 12:42 RDW 18.4 % (13.2-15.2) H 09/09/16 12:42 Plt Count 331 K/mm3 (140-440) 09/09/16 12:42 Lymph % (Auto) 15.4 % (13.4-35.0) 09/09/16 12:42 [place] % (Auto) 9.0 % (0.0-7.3) H 09/09/16 12:42 Eos % (Auto) 1.4 % (0.0-4.3) 09/09/16 12:42 Baso % (Auto) 0.6 % (0.0-1.8) 09/09/16 12:42 Lymph # 1.7 K/mm3 (1.2-5.4) 09/09/16 12:42 [place] # 1.0 K/mm3 (0.0-0.8) H 09/09/16 12:42 Eos # 0.2 K/mm3 (0.0-0.4) 09/09/16 12:42 Baso # 0.1 K/mm3 (0.0-0.1) 09/09/16 12:42 Seg Neutrophils % 73.6 % (40.0-70.0) H 09/09/16 12:42 Seg Neutrophils # 8.1 K/mm3 (1.8-7.7) H 09/09/16 12:42 PT 23.6 Sec. (12.2-14.9) H 09/10/16 12:36 INR 1.98 (0.87-1.13) H 09/10/16 12:36 APTT 33.9 Sec. (24.2-36.6) 09/09/16 12:42 Sodium 134 mmol/L (137-145) L 09/09/16 12:42 Potassium 5.6 mmol/L (3.6-5.0) H 09/09/16 12:42 Chloride 103.1 mmol/L (98-107) 09/09/16 12:42 Carbon Dioxide 16 mmol/L (22-30) L 09/09/16 12:42 Anion Gap 21 mmol/L 09/09/16 12:42 BUN 67 mg/dL (9-20) H 09/09/16 12:42 Creatinine 3.7 mg/dL (0.8-1.5) H 09/09/16 12:42 Estimated GFR 20 ml/min 09/09/16 12:42 BUN/Creatinine Ratio 18.10 % 09/09/16 12:42 Glucose 157 mg/dL (75-100) H 09/09/16 12:42 POC Glucose 135 (70-105) H 09/09/16 12:01 Lactic Acid 1.50 mmol/L (0.7-2.0) 09/09/16 15:52 Calcium 8.8 mg/dL (8.4-10.2) 09/09/16 12:42 Total Bilirubin 0.30 mg/dL (0.1-1.2) 09/09/16 12:42 AST 11 units/L (5-40) 09/09/16 12:42 ALT 10 units/L (7-56) 09/09/16 12:42 Alkaline Phosphatase 59 units/L (35-129) 09/09/16 12:42 Total Protein 6.7 g/dL (6.3-8.2) 09/09/16 12:42 Albumin 3.7 g/dL (3.9-5) L 09/09/16 12:42 Albumin/Globulin Ratio 1.2 % 09/09/16 12:42 Urine Color Yellow (Yellow) 09/10/16 07:20 Urine Turbidity Clear (Clear) 09/10/16 07:20 Urine pH 5.0 (5.0-7.0) 09/10/16 07:20 Ur Specific [place] 1.010 (1.003-1.030) 09/10/16 07:20 Urine Protein <15 mg/dl mg/dL (Negative) 09/10/16 07:20 Urine Glucose (UA) Neg mg/dL (Negative) 09/10/16 07:20 Urine Ketones Neg mg/dL (Negative) 09/10/16 07:20 Urine Blood Neg (Negative) 09/10/16 07:20 Urine Nitrite Neg (Negative) 09/10/16 07:20 Urine Bilirubin Neg (Negative) 09/10/16 07:20 Urine Urobilinogen < 2.0 mg/dL (<2.0) 09/10/16 07:20 Ur Leukocyte Esterase Neg (Negative) 09/10/16 07:20 Urine WBC (Auto) 1.0 /HPF (0.0-6.0) 09/10/16 07:20 Urine RBC (Auto) 1.0 /HPF (0.0-6.0) 09/10/16 07:20 U Epithel Cells (Auto) < 1.0 /HPF (0-13.0) 09/10/16 07:20 Urine Mucus Few /HPF 09/10/16 07:20 Urine Creatinine 156.2 mg/dL (0.1-20.0) H 09/10/16 07:20 Urine Sodium 38 mEq/L 09/10/16 07:20
--- NOTE | 2016-09-10 15:12 | Consultation ---
History of Present Illness - Reason for Consult Consult date: 09/10/16 acute renal failure Requesting physician: NAVEEN TEJADA - History of Present Illness 66-year-old male with a history of 2diabetes mellitus, hypertension, complicated by stage III chronic kidney disease. Patient has not been feeling well for at least a week now. Had been feeling sluggish for about 4 days and went to see his primary care physician on September 07 and was noted to have low blood pressure. Patient was told to decrease lisinopril 20 mg to half a tablet daily. The next day, a note from at night continue evaluating and found his blood pressure to be as low as 89/36 mmHg. He was told that if his symptoms did not improve he would have to come to the hospital. Patient denies any dizziness or diaphoresis but he was having nausea and intermittent episodes of vomiting. His food did not taste good. He denies any diarrhea. Patient was not feeling any better the next day which was yesterday and so he came to the ER for further management. He denies having any fever or chills. No chest pain or shortness of breath. He has been having pain in his feet on and off attributed to gout. BUN and creatinine found to be elevated as is 67 and 3.7 mg/dL much worse than his baseline. Sodium was normal at 134 mmol per liter and potassium high at 5.6mmols/l with bicarbonate also low at 16 mmol per liter. I'm consulted to assist with managing this. Patient denies any urinary symptoms no frequency, urgency, dysuria, hematuria or poor stream. He does admit to using non- steroidal anti-inflammatory drug- indomethacin- which was prescribed for gout but not in the last week or so. No history of kidney stones or recurrent infections. No fever or rash. 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 denies: smoking (smoking about 4 years ago), alcohol abuse (with drinking alcohol about 4-5 years ago), prescription drug abuse Family history: CAD (Father of acute myocardial infarction at 62 he had peripheral vascular disease. One brother of heart disease he had hypertension and end-stage renal disease on dialysis), cancer (one sister of metastatic breast cancer following recurrence), diabetes, hypertension (one sister has diabetes and hypertension she is 82 years old and another sister has hyperlipidemia), other (other at age 96 of natural causes) Medications and Allergies Allergies Allergy/AdvReac Type Severity Reaction Status Date / Time No Known Allergies Allergy Verified 07/27/16 07:52 Home Medications Medication Instructions Recorded Confirmed Last Taken Type Hydrochlorothiazide 12.5 mg PO QDAY 02/05/13 09/09/16 09/09/16 10:00 History Insulin Aspart Prot/Aspart(Nf) 45 unit SQ QPM 02/05/13 09/09/16 11/23/14 History [NovoLOG Mix 70/30 VIAL] Insulin Aspart Prot/Aspart(Nf) 70 units SC QAM 02/05/13 09/09/16 09/07/16 10:00 History [NovoLOG Mix 70/30 VIAL] Lisinopril [Zestril TAB] 20 mg PO QDAY 02/05/13 09/09/16 09/09/16 10:00 History Simvastatin 40 mg PO QHS 02/05/13 09/09/16 09/08/16 18:00 History metFORMIN [Glucophage] 500 mg PO BID 02/05/13 09/09/16 09/09/16 10:00 History Colchicine [Colcrys] 0.6 mg PO BID #10 tab 09/21/15 09/09/16 Unknown Rx Dexamethasone [Decadron] 4 mg PO DAILY #5 tablet 09/21/15 09/09/16 Unknown Rx Febuxostat (Nf) [Uloric (Nf)] 40 mg PO PRN 09/21/15 09/09/16 Unknown History HYDROcodone/APAP 5-325 [[place] 1 each PO Q6HR PRN #12 tablet 09/21/15 09/09/16 Unknown Rx 5/325] Insulin Lispro [HumaLOG VIAL] 3 units SQ AC 09/21/15 09/09/16 Unknown History [place]-3/Dha/Epa/Fish Oil [[place]-3 1 gram PO DAILY 09/21/15 09/09/16 09/08/16 18: 00 History Fish Oil 1,000 mg Sftg] Tamsulosin [Flomax] 0.4 mg PO DAILY 09/21/15 09/09/16 09/08/16 21:00 History Warfarin [Coumadin] 0.5 tab PO 2XW 09/21/15 09/09/16 09/08/16 19:00 History Warfarin [Coumadin] 3 tab PO 5XW 09/21/15 09/09/16 09/08/16 19:00 History Acetaminophen [Acetaminophen TAB] 500 mg PO Q6HR PRN #25 tablet 05/28/16 Unknown Rx Cyclobenzaprine [Flexeril] 10 mg PO TID PRN #12 tablet 05/28/16 09/09/16 Unknown Rx Ibuprofen [Motrin 600 MG tab] 600 mg PO Q8H PRN #15 tablet 07/27/16 09/09/16 Unknown Rx predniSONE [Deltasone] 40 mg PO QDAY 5 Days 07/27/16 09/09/16 Unknown Rx Active Meds: Active Medications Acetaminophen (Tylenol) 650 mg PO Q4H PRN PRN Reason: Pain MILD(1-3)/Fever >100.5/BARILL[place] Acetaminophen/Hydrocodone Bitart ([place] 5/325) 1 each PO Q6HR PRN PRN Reason: Pain Albuterol (Proventil) 2.5 mg IH Q4HRT PRN PRN Reason: Shortness Of Breath Cyclobenzaprine HCl (Flexeril) 10 mg PO TID PRN PRN Reason: Muscle Spasm Enoxaparin Sodium (Lovenox) 100 mg SUB-Q Q24HR [facility] Sodium Chloride (Nacl 0.45% 1000 Ml) 1,000 mls @ 75 mls/hr IV DIRECT ANKUSH Stop: 09/11/16 18:49 Last Admin: 09/10/16 06:19 Dose: 75 mls/hr Ondansetron HCl (Zofran) 4 mg IV Q8H PRN PRN Reason: N/V unrelieved by Reglan Simvastatin (Zocor) 40 mg PO QHS [facility] Tamsulosin HCl (Flomax) 0.4 mg PO DAILY [facility] Warfarin Sodium (Coumadin Pharmacy To Dose) 1 each PO PKCONSULT ANKUSH PRN Reason: Protocol Warfarin Sodium (Coumadin) 3 mg PO DAILY@1700 ANKUSH PRN Reason: Protocol Review of Systems All systems: negative Constitutional: fatigue, weakness, no weight loss, no anorexia Cardiovascular: no chest pain, no palpitations, no rapid/irregular heart beat, no edema, no lightheadedness, no shortness of breath Respiratory: no cough, no excessive sputum, no hemoptysis, no shortness of breath Gastrointestinal: nausea, vomiting, no abdominal pain, no diarrhea, no constipation, no melena, no hematochezia, no indigestion Genitourinary Male: no dysuria, no hematuria, no urinary frequency, no urinary hesitancy, no incontinence Musculoskeletal: other (Pain feet) Integumentary: no rash, no pruritis, no unusual bruising Neurological: no parathesias, no numbness, no tingling, no seizures Psychiatric: no anxiety, no depression Endocrine: no polyuria, no nocturia, no excessive sweating Hematologic/Lymphatic: no easy bruising, no easy bleeding Exam - Vital Signs Vital signs: Vital Signs Temp Pulse Resp BP Pulse Ox 98.2 F 73 18 84/46 98 09/09/16 12:22 09/09/16 12:22 09/09/16 12:22 09/09/16 12:22 09/09/16 12:22 - Physical Exam Narrative exam: Gen.: Middle-aged -[place] male lying in bed in no acute distress HEENT normocephalic/atraumatic, pink conjunctiva and anicteric sclera, pink, moist oral mucous membranes Neck no venous distention, no goiter CVS S1-S2 regular rate rhythm without murmur rub or gallop Chest clear to auscultation Abdomen: Protuberant, soft nontender no organomegaly no bruit bowel sounds present Ext: No edema Genitourinary deferred Neuro: Awake, alert, moving all extremities Results - Lab Results 09/09/16 12:42 09/10/16 14:07 Most recent lab results Calcium 8.8 mg/dL (8.4-10.2) 09/09/16 12:42 Urine Creatinine 156.2 mg/dL (0.1-20.0) H 09/10/16 07:20 Urine Sodium 38 mEq/L 09/10/16 07:20 Assessment and Plan - Patient Problems (1) Acute on chronic renal insufficiency Current Visit: Yes Status: Acute Plan to address problem: Acute kidney injury probably prerenal azotemia secondary to hypotension. Ultrasound does not show any hydronephrosis. Urinalysis is completely bland. Blood pressure improving. Follow-up kidney function and electrolytes (2) Hyperkalemia Current Visit: Yes Status: Acute Plan to address problem: Secondary to decreased distal delivery of sodium needed for exchange for potassium. Follow-up potassium (3) Hyponatremia Current Visit: Yes Status: Acute Plan to address problem: Depletional hyponatremia. Follow-up sodium with volume repletion (4) Hypotension Current Visit: Yes Status: Acute Qualifiers: Hypotension type: H Trimester: T Plan to address problem: Continue volume repletion (5) Type 2 diabetes mellitus with diabetic chronic kidney disease Current Visit: Yes Status: Acute Qualifiers: Diabetes mellitus nursing home insulin use: D Chronic kidney disease stage: C Plan to address problem: Blood sugar management by primary attending (6) Hypertensive chronic kidney disease with stage 1 through stage 4 chronic kidney disease, or unspecified chronic kidney disease Current Visit: Yes Status: Acute Plan to address problem: Follow-up blood pressure off of medications (7) Obesity (BMI 30-39.9) Current Visit: No Status: Chronic Qualifiers: Obesity type: O Obesity severity: O Plan to address problem: Weight loss measures on discharge
[2016-09-10] MEDS ORDERED: COUMADIN PO SCH ×2 (17:00)
[2016-09-10] MEDS: NORCO 5/325 PO PRN (18:32)
--- NOTE | 2016-09-10 20:44 | Consultation ---
History of Present Illness - Reason for Consult Consult date: 09/10/16 hypercoagulable. Requesting physician: YVETTE TELLO - History of Present Illness Thank you for this consult, patient seen/examined, record reviewed, case d/w patient, who i8s well known to me from the office. He apparently presented to the ED for reasons of hypotension. Heis also found to have worsened renal function. He is admitted for control/ adjustment of his renal function, and BP. He is currently getting hydrated. No new issues other than perhaps a mild gout flare up. He does have history of PE/DVT, and his coumadin is resumed, and INR/ PT will be monitored accordingly. 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 denies: smoking (smoking about 4 years ago), alcohol abuse (with drinking alcohol about 4-5 years ago), prescription drug abuse Family history: CAD (Father of acute myocardial infarction at 62 he had peripheral vascular disease. One brother of heart disease he had hypertension and end-stage renal disease on dialysis), cancer (one sister of metastatic breast cancer following recurrence), diabetes, hypertension (one sister has diabetes and hypertension she is 82 years old and another sister has hyperlipidemia), other (other at age 96 of natural causes) Medications and Allergies Allergies Allergy/AdvReac Type Severity Reaction Status Date / Time No Known Allergies Allergy Verified 07/27/16 07:52 Home Medications Medication Instructions Recorded Confirmed Last Taken Type Hydrochlorothiazide 12.5 mg PO QDAY 02/05/13 09/09/16 09/09/16 10:00 History Insulin Aspart Prot/Aspart(Nf) 45 unit SQ QPM 02/05/13 09/09/16 11/23/14 History [NovoLOG Mix 70/30 VIAL] Insulin Aspart Prot/Aspart(Nf) 70 units SC QAM 02/05/13 09/09/16 09/07/16 10:00 History [NovoLOG Mix 70/30 VIAL] Lisinopril [Zestril TAB] 20 mg PO QDAY 02/05/13 09/09/16 09/09/16 10:00 History Simvastatin 40 mg PO QHS 02/05/13 09/09/16 09/08/16 18:00 History metFORMIN [Glucophage] 500 mg PO BID 02/05/13 09/09/16 09/09/16 10:00 History Colchicine [Colcrys] 0.6 mg PO BID #10 tab 09/21/15 09/09/16 Unknown Rx Dexamethasone [Decadron] 4 mg PO DAILY #5 tablet 09/21/15 09/09/16 Unknown Rx Febuxostat (Nf) [Uloric (Nf)] 40 mg PO PRN 09/21/15 09/09/16 Unknown History HYDROcodone/APAP 5-325 [[place] 1 each PO Q6HR PRN #12 tablet 09/21/15 09/09/16 Unknown Rx 5/325] Insulin Lispro [HumaLOG VIAL] 3 units SQ AC 09/21/15 09/09/16 Unknown History Onley-3/Dha/Epa/Fish Oil [Onley-3 1 gram PO DAILY 09/21/15 09/09/16 09/08/16 18: 00 History Fish Oil 1,000 mg Sftg] Tamsulosin [Flomax] 0.4 mg PO DAILY 09/21/15 09/09/16 09/08/16 21:00 History Warfarin [Coumadin] 0.5 tab PO 2XW 09/21/15 09/09/16 09/08/16 19:00 History Warfarin [Coumadin] 3 tab PO 5XW 09/21/15 09/09/16 09/08/16 19:00 History Acetaminophen [Acetaminophen TAB] 500 mg PO Q6HR PRN #25 tablet 05/28/16 Unknown Rx Cyclobenzaprine [Flexeril] 10 mg PO TID PRN #12 tablet 05/28/16 09/09/16 Unknown Rx Ibuprofen [Motrin 600 MG tab] 600 mg PO Q8H PRN #15 tablet 07/27/16 09/09/16 Unknown Rx predniSONE [Deltasone] 40 mg PO QDAY 5 Days 07/27/16 09/09/16 Unknown Rx Dorzolamide HCl [Dorzolamide HCl] 1 drop OU BID 09/10/16 09/10/16 09/09/16 History Latanoprost 0.005% [Xalatan 0.005%] 1 drop OU QPM 09/10/16 09/10/16 09/09/16 21: 00 History Active Meds: Active Medications Acetaminophen (Tylenol) 650 mg PO Q4H PRN PRN Reason: Pain MILD(1-3)/Fever >100.5/BARILLAS Acetaminophen/Hydrocodone Bitart ([place] 5/325) 1 each PO Q6HR PRN PRN Reason: Pain Last Admin: 09/10/16 18:32 Dose: 1 each Albuterol (Proventil) 2.5 mg IH Q4HRT PRN PRN Reason: Shortness Of Breath Cyclobenzaprine HCl (Flexeril) 10 mg PO TID PRN PRN Reason: Muscle Spasm Enoxaparin Sodium (Lovenox) 100 mg SUB-Q Q24HR [facility] Sodium Chloride (Nacl 0.45% 1000 Ml) 1,000 mls @ 75 mls/hr IV DIRECT ANKUSH Stop: 09/11/16 18:49 Last Admin: 09/10/16 18:36 Dose: 75 mls/hr Ondansetron HCl (Zofran) 4 mg IV Q8H PRN PRN Reason: N/V unrelieved by Reglan Simvastatin (Zocor) 40 mg PO QHS [facility] Tamsulosin HCl (Flomax) 0.4 mg PO DAILY [facility] Warfarin Sodium (Coumadin Pharmacy To Dose) 1 each PO PKCONSULT ANKUSH PRN Reason: Protocol Warfarin Sodium (Coumadin) 3 mg PO DAILY@1700 ANKUSH PRN Reason: Protocol Last Admin: 09/10/16 16:08 Dose: 3 mg Review of Systems Constitutional: chronic pain Musculoskeletal: leg numbness/tingling Exam - Constitutional Vitals: Temp Pulse Resp BP Pulse Ox 98 F 78 22 136/80 97 09/10/16 15:55 09/10/16 15:55 09/10/16 15:55 09/10/16 15:55 09/10/16 15:55 General appearance: Present: mild distress, well-nourished - EENT Eyes: Present: PERRL ENT: hearing intact, clear oral mucosa - Neck Neck: Present: supple, normal ROM - Respiratory Respiratory effort: normal Respiratory: bilateral: CTA - Cardiovascular Heart Sounds: Present: S1 & S2. Absent: rub, click - Extremities Extremities: pulses symmetrical, No edema Peripheral Pulses: within normal limits - Abdominal General gastrointestinal: Present: soft, non-tender, non-distended, normal bowel sounds Male genitourinary: Present: deferred - Rectal Rectal Exam: deferred - Integumentary Integumentary: Present: clear, warm, dry - Musculoskeletal Musculoskeletal: gait normal, strength equal bilaterally - Psychiatric Psychiatric: appropriate mood/affect, intact judgment & insight - Neurologic Neurologic: CNII-XII intact, moves all extremities Results - Labs CBC & Chem 7: 09/09/16 12:42 09/10/16 14:07 Labs: Abnormal lab results 09/10/16 09/10/16 Range/Units 07:20 12:36 PT 23.6 H (12.2-14.9) Sec. INR 1.98 H (0.87-1.13) Urine Creatinine 156.2 H (0.1-20.0) mg/dL Assessment and Plan - Patient Problems (1) Acute on chronic renal insufficiency Current Visit: Yes Status: Acute Plan to address problem: Hydration., labs. (2) Type 2 diabetes mellitus with diabetic chronic kidney disease Current Visit: Yes Status: Acute Qualifiers: Diabetes mellitus roasterman insulin use: D Chronic kidney disease stage: C Plan to address problem: BG control. (3) Hypotension Current Visit: Yes Status: Acute Qualifiers: Hypotension type: H Trimester: T Plan to address problem: Hydration, adjust BP meds. (4) Hypercoagulable state Current Visit: Yes Status: Acute Plan to address problem: Monitor ,and control PT/INR, with coumadin.
[2016-09-10 21:02] LABS: BUN/Creatinine Ratio 29.58; Calcium 8.9 mg/dL (8.4-10.2); Chloride 103.4 mmol/L (98-107); Potassium 4.8 mmol/L (3.6-5.0)
[2016-09-10] MEDS: ZOCOR PO SCH (21:14)
[2016-09-11] MEDS: NORCO 5/325 PO PRN ×3 (00:31→21:12)
[2016-09-11 05:38] LABS: Basophils % (Auto) 0.3 % (0.0-1.8); Eosinophils % (Auto) 3.1 % (0.0-4.3); Hemoglobin 10.2 gm/dl (11.8-15.2); Mean Corpuscular HGB Conc 32 % (32-34); Mean Corpuscular Hemoglobin 27 pg (28-32); Mean Corpuscular Volume 85 fl (84-94); Platelet Count 320 K/mm3 (140-440); Red Blood Count 3.78 M/mm3 (3.65-5.03); White Blood Count 8.4 K/mm3 (4.5-11.0)
[2016-09-11 05:50] LABS: Calcium 8.9 mg/dL (8.4-10.2); Chloride 105.6 mmol/L (98-107); Magnesium 1.5 mg/dL (1.7-2.3); Potassium 4.8 mmol/L (3.6-5.0)
--- NOTE | 2016-09-11 08:44 | Progress Note ---
Assessment and Plan Assessment and plan: --Hypomagnesemia replace per protocol and monitor levels --Hyperkalemia Current Visit: Yes Status: Acute Plan to address problem: corrected, monitor electrolytes -- Acute on chronic kidney disease stage III Current Visit: Yes Status: Acute Plan to address problem: Renal function improving continue IV hydration, input output monitoring, closely monitor renal function, avoid nephrotoxic medications, --History of Pulmonary embolism Current Visit: No Status: Acute Qualifiers: Pulmonary embolism type: P Chronicity: C Acute cor pulmonale presence: A Plan to address problem: Subtherapeutic INR ,resume coumadin, and full dose lovenox target INR 2-3 , neurology following --Hyper coag state continue chronic anticoagulation -- Right leg DVT Current Visit: No Status: Acute Qualifiers: Affected thrombotic vein of extremity: A Chronicity: C Plan to address problem: Subtherapeutic INR ,resume coumadin, DC planning. Case management Hematology oncology consult and recommendations noted and appreciated History Interval history: Patient seen and evaluated medical records reviewed No new events reported by the nursing staff INR subtherapeutic, patient has no new complaints Hospitalist Physical - Constitutional Vitals: Temp Pulse Resp BP Pulse Ox 99.5 F 82 18 115/75 98 09/11/16 08:00 09/11/16 08:00 09/11/16 08:00 09/11/16 08:00 09/11/16 08:00 General appearance: Present: no acute distress, well-nourished - EENT Eyes: Present: PERRL, EOM intact - Neck Neck: Present: supple, normal ROM - Respiratory Respiratory effort: normal Respiratory: bilateral: diminished, negative: rales, rhonchi, wheezing - Cardiovascular Rhythm: regular Heart Sounds: Present: S1 & S2 - Extremities Extremities: no ischemia, No edema - Abdominal General gastrointestinal: soft, non-tender, non-distended, normal bowel sounds - Integumentary Integumentary: Present: clear, warm - Psychiatric Psychiatric: appropriate mood/affect, cooperative - Neurologic Neurologic: CNII-XII intact, moves all extremities Results - Labs CBC & Chem 7: 09/11/16 05:06 09/11/16 05:06 Labs: Laboratory Last Values WBC 8.4 K/mm3 (4.5-11.0) 09/11/16 05:06 RBC 3.78 M/mm3 (3.65-5.03) 09/11/16 05:06 Hgb 10.2 gm/dl (11.8-15.2) L 09/11/16 05:06 Hct 32.0 % (35.5-45.6) L 09/11/16 05:06 MCV 85 fl (84-94) 09/11/16 05:06 MCH 27 pg (28-32) L 09/11/16 05:06 MCHC 32 % (32-34) 09/11/16 05:06 RDW 18.0 % (13.2-15.2) H 09/11/16 05:06 Plt Count 320 K/mm3 (140-440) 09/11/16 05:06 Lymph % (Auto) 20.9 % (13.4-35.0) 09/11/16 05:06 [place] % (Auto) 9.4 % (0.0-7.3) H 09/11/16 05:06 Eos % (Auto) 3.1 % (0.0-4.3) 09/11/16 05:06 Baso % (Auto) 0.3 % (0.0-1.8) 09/11/16 05:06 Lymph # 1.7 K/mm3 (1.2-5.4) 09/11/16 05:06 [place] # 0.8 K/mm3 (0.0-0.8) 09/11/16 05:06 Eos # 0.3 K/mm3 (0.0-0.4) 09/11/16 05:06 Baso # 0.0 K/mm3 (0.0-0.1) 09/11/16 05:06 Seg Neutrophils % 66.3 % (40.0-70.0) 09/11/16 05:06 Seg Neutrophils # 5.5 K/mm3 (1.8-7.7) 09/11/16 05:06 PT 23.6 Sec. (12.2-14.9) H 09/10/16 12:36 INR 1.98 (0.87-1.13) H 09/10/16 12:36 APTT 33.9 Sec. (24.2-36.6) 09/09/16 12:42 Sodium 137 mmol/L (137-145) 09/11/16 05:06 Potassium 4.8 mmol/L (3.6-5.0) 09/11/16 05:06 Chloride 105.6 mmol/L (98-107) 09/11/16 05:06 Carbon Dioxide 15 mmol/L (22-30) L 09/11/16 05:06 Anion Gap 21 mmol/L 09/11/16 05:06 BUN 63 mg/dL (9-20) H 09/11/16 05:06 Creatinine 2.1 mg/dL (0.8-1.5) H 09/11/16 05:06 Estimated GFR 38 ml/min 09/11/16 05:06 BUN/Creatinine Ratio 30.00 % 09/11/16 05:06 Glucose 160 mg/dL (75-100) H 09/11/16 05:06 POC Glucose 135 (70-105) H 09/09/16 12:01 Lactic Acid 1.50 mmol/L (0.7-2.0) 09/09/16 15:52 Calcium 8.9 mg/dL (8.4-10.2) 09/11/16 05:06 Magnesium 1.50 mg/dL (1.7-2.3) L 09/11/16 05:06 Total Bilirubin 0.30 mg/dL (0.1-1.2) 09/09/16 12:42 AST 11 units/L (5-40) 09/09/16 12:42 ALT 10 units/L (7-56) 09/09/16 12:42 Alkaline Phosphatase 59 units/L (35-129) 09/09/16 12:42 Total Protein 6.7 g/dL (6.3-8.2) 09/09/16 12:42 Albumin 3.7 g/dL (3.9-5) L 09/09/16 12:42 Albumin/Globulin Ratio 1.2 % 09/09/16 12:42 Urine Color Yellow (Yellow) 09/10/16 07:20 Urine Turbidity Clear (Clear) 09/10/16 07:20 Urine pH 5.0 (5.0-7.0) 09/10/16 07:20 Ur Specific [place] 1.010 (1.003-1.030) 09/10/16 07:20 Urine Protein <15 mg/dl mg/dL (Negative) 09/10/16 07:20 Urine Glucose (UA) Neg mg/dL (Negative) 09/10/16 07:20 Urine Ketones Neg mg/dL (Negative) 09/10/16 07:20 Urine Blood Neg (Negative) 09/10/16 07:20 Urine Nitrite Neg (Negative) 09/10/16 07:20 Urine Bilirubin Neg (Negative) 09/10/16 07:20 Urine Urobilinogen < 2.0 mg/dL (<2.0) 09/10/16 07:20 Ur Leukocyte Esterase Neg (Negative) 09/10/16 07:20 Urine WBC (Auto) 1.0 /HPF (0.0-6.0) 09/10/16 07:20 Urine RBC (Auto) 1.0 /HPF (0.0-6.0) 09/10/16 07:20 U Epithel Cells (Auto) < 1.0 /HPF (0-13.0) 09/10/16 07:20 Urine Mucus Few /HPF 09/10/16 07:20 Urine Creatinine 156.2 mg/dL (0.1-20.0) H 09/10/16 07:20 Urine Sodium 38 mEq/L 09/10/16 07:20
[2016-09-11] MEDS: FLEXERIL PO PRN ×2 (09:13→21:12)
[2016-09-11] MEDS: MAG-OX PO SCH (09:29)
[2016-09-11] MEDS: FLOMAX PO SCH (09:30)
[2016-09-11] MEDS: DORZOLAMIDE OU SCH ×2 (09:32→21:21)
[2016-09-11] MEDS ORDERED: HCTZ PO SCH (10:00)
[2016-09-11] MEDS ORDERED: LOVENOX SUB-Q SCH (10:00)
[2016-09-11] MEDS ORDERED: ZESTRIL PO SCH (10:00)
[2016-09-11 11:50] LABS: INR 1.68 (0.87-1.13)
--- NOTE | 2016-09-11 13:28 | Progress Note ---
Assessment and Plan - Patient Problems (1) Acute on chronic renal insufficiency Current Visit: Yes Status: Acute Plan to address problem: Acute kidney injury probably prerenal azotemia secondary to hypotension. Ultrasound does not show any hydronephrosis. Urinalysis is completely bland. Renal function improving with Cr down to 2.1mg/dl. cont IVF with 1/2NS. (2) Hyperkalemia Current Visit: Yes Status: Acute Plan to address problem: Secondary to decreased distal delivery of sodium needed for exchange for potassium. improved with medical treatment. cont 2g K renal diet. Follow-up potassium (3) Hyponatremia Current Visit: Yes Status: Acute Plan to address problem: Depletional hyponatremia. Na improved with volume repletion (4) Hypertensive chronic kidney disease with stage 1 through stage 4 chronic kidney disease, or unspecified chronic kidney disease Current Visit: Yes Status: Acute Plan to address problem: Monitor BP off meds for now. (5) Type 2 diabetes mellitus with diabetic chronic kidney disease Current Visit: Yes Status: Acute Qualifiers: Diabetes mellitus assisted insulin use: D Chronic kidney disease stage: C Plan to address problem: Blood sugar management by primary attending (6) Metabolic acidosis Current Visit: Yes Status: Acute Plan to address problem: start Na bicarb 650mg po tid Subjective Date of service: 09/11/16 Interval history: Pt awake, alert, c/o LLE pain. Objective - Vital Signs Vital signs: Vital Signs - 12hr 09/11/16 09/11/16 04:00 08:00 Temperature 98.5 F 99.5 F Pulse Rate [ 75 82 Right] Respiratory 18 18 Rate Blood Pressure 114/56 115/75 [Right Arm] O2 Sat by Pulse 99 98 Oximetry - General Appearance General appearance: well-developed, well-nourished, appears stated age EENT: ATNC, PERRL, mucous membranes moist Neck: no JVD Respiratory: Present: Clear to Ascultation Cardiology: regular, S1S2 Gastrointestinal: normal, normoactive bowel sounds Integumentary: no rash, other (no edema ) Neurologic: no focal deficit, alert and oriented x3, strength 5/5, CN 3-12 intact Psychiatric: mood/affect appropriate, cooperative - Lab 09/11/16 05:06 09/11/16 05:06 Most recent lab results Calcium 8.9 mg/dL (8.4-10.2) 09/11/16 05:06 Magnesium 1.50 mg/dL (1.7-2.3) L 09/11/16 05:06 Urine Creatinine 156.2 mg/dL (0.1-20.0) H 09/10/16 07:20 Urine Sodium 38 mEq/L 09/10/16 07:20
[2016-09-11] MEDS: SODIUM BICARBONATE PO SCH ×2 (15:32→21:13)
--- NOTE | 2016-09-11 16:26 | Admit Criteria Form ---
Admission Criteria Documentation: RENAL FAILURE, ACUTE Clinical Indications for Admission to Inpatient Care ( Place 'X' for any and all applicable criteria): Admission is indicated for ALL (if I & II) or III of the following [A](2)(3)(4)( 5)(6)(7): [ ]I. Acute renal failure as indicated by ANY ONE of the following: [ ]a) A 3-fold rise in serum creatinine from baseline [ ]b) Serum creatinine greater than 4 mg/dL (354 micromoles/L) with an acute rise greater than 0.5 mg/dL (44.2 micromoles/L) [ ]c) Reduction of more than 75% in estimated glomerular filtration rate from baseline [ ]d) Estimated glomerular filtration rate less than 35 mL/min/1.73m2 (0.59mL/sec/1.73m2)in a child up to 18 years of age [ ]e) Anuria indicated by ALL of the following: [ ]i) Adequate volume status [ ]ii) Cessation of urine output indicated by ANY ONE of the following: [ ]1) Urine output less than 0.3 mL/kg/hr for 24 hours [ ]2) Anuria (urine output less than 0.1 mL/kg/ hr) for 12 hours [ ] II. Renal failure cannot be managed in an outpatient setting or observational care setting as indicating by ANY ONE of the following: [ ]a) Altered mental status that is severe or persistent [ ]b) Volume overload or Respiratory distress (eg, clinically significant pulmonary edema) that is severe or persistent [ ]c) Cardiac arrhythmias of immediate concern [ ]d) Hemodynamic instability [ ]e) Clinically significant electrolyte abnormality that requires inpatient care (eg, hyperkalemia with severe ECG findings)[B] [ ]f) Clinically significant metabolic abnormality (eg, acidosis) that is severe or persistent [ ]g) Acute treatment of renal failure (eg, renal replacement therapy) not feasible or appropriate in observational care setting [ ]h) Clinical situation too unstable or uncertain (eg, inadequate urine output, ongoing decline in renal function, etiology unclear) [ ]i) Necessary support and caregiver ability to comply with outpatient treatment cannot be arranged in observation care timeframe (eg, within 24 hours) [ ]j) Other significant finding or clinical condition judged not to be within scope of observation care [X ]III.General contraindications and/or Inappropriate clinical situations for Observational Care in patients with Acute Renal Failure, when ANY ONE of the following is required: [X]a) Prediction of prolongation of LOS based on ANY ONE of the following may be considered as a contraindication for observational care 2, 3, 4, 5, 6, 7, 8 , 9, 10, 11 [X ]i) Age > 65 yrs. [ ]ii) Patient arriving by ambulance [ ]iii) Patient with high acuity [ ]iv) Patient requiring vital sign monitoring [ ]v) Patient on IV medication [ ]b) Systolic blood pressures 180mmHg 3,12 [ ]c) Patient with altered mental status including delirium and other alteration of consciousness, (3) [ ]d) Patient whose discharge disposition will be to a usp home or rehabilitation home should not be managed in Emergency Department Observation Unit. CMS rule requires 3 days hospital stay before such placement.3,13 [ ]e) Patient with failure to thrive due to broad array of etiologies 3, 16,17 [ ]f) Inability to ambulate 3,14 Extended stay beyond goal length of stay may be needed for(13) [ ]a) Continuing uremic complications [ ]b) Care for comorbidities [ ]c) acute renal failure [ ]d) Need for dialysis The original [employer] content created by [employer] has been revised. The portions of the content which have been revised are identified through the use of italic text or in bold, and [facility] has neither reviewed nor approved the modified material. All other unmodified content is copyright [employer]. Please see references footnoted in the original [employer] [facility] edition 2016 Admission Criteria Met: Yes
[2016-09-11] MEDS ORDERED: COUMADIN PO SCH ×2 (17:00)
[2016-09-11] MEDS: XALATAN 0.005% OU SCH (18:05)
--- NOTE | 2016-09-11 20:13 | Consultation ---
History of Present Illness - Reason for Consult Consult date: 09/11/16 - History of Present Illness Patient seen/examined,resting in bed, complaints of left popliteal fossa pain.Labs reviewed, case d/w him. will do us of the left lower wxt. 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 denies: smoking (smoking about 4 years ago), alcohol abuse (with drinking alcohol about 4-5 years ago), prescription drug abuse Family history: CAD (Father of acute myocardial infarction at 62 he had peripheral vascular disease. One brother of heart disease he had hypertension and end-stage renal disease on dialysis), cancer (one sister of metastatic breast cancer following recurrence), diabetes, hypertension (one sister has diabetes and hypertension she is 82 years old and another sister has hyperlipidemia), other (other at age 96 of natural causes) Medications and Allergies Allergies Allergy/AdvReac Type Severity Reaction Status Date / Time No Known Allergies Allergy Verified 07/27/16 07:52 Home Medications Medication Instructions Recorded Confirmed Last Taken Type Hydrochlorothiazide 12.5 mg PO QDAY 02/05/13 09/09/16 09/09/16 10:00 History Insulin Aspart Prot/Aspart(Nf) 45 unit SQ QPM 02/05/13 09/09/16 11/23/14 History [NovoLOG Mix 70/30 VIAL] Insulin Aspart Prot/Aspart(Nf) 70 units SC QAM 02/05/13 09/09/16 09/07/16 10:00 History [NovoLOG Mix 70/30 VIAL] Lisinopril [Zestril TAB] 20 mg PO QDAY 02/05/13 09/09/16 09/09/16 10:00 History Simvastatin 40 mg PO QHS 02/05/13 09/09/16 09/08/16 18:00 History metFORMIN [Glucophage] 500 mg PO BID 02/05/13 09/09/16 09/09/16 10:00 History Colchicine [Colcrys] 0.6 mg PO BID #10 tab 09/21/15 09/09/16 Unknown Rx Dexamethasone [Decadron] 4 mg PO DAILY #5 tablet 09/21/15 09/09/16 Unknown Rx Febuxostat (Nf) [Uloric (Nf)] 40 mg PO PRN 09/21/15 09/09/16 Unknown History HYDROcodone/APAP 5-325 [[place] 1 each PO Q6HR PRN #12 tablet 09/21/15 09/09/16 Unknown Rx 5/325] Insulin Lispro [HumaLOG VIAL] 3 units SQ AC 09/21/15 09/09/16 Unknown History [place]-3/Dha/Epa/Fish Oil [[place]-3 1 gram PO DAILY 09/21/15 09/09/16 09/08/16 18: 00 History Fish Oil 1,000 mg Sftg] Tamsulosin [Flomax] 0.4 mg PO DAILY 09/21/15 09/09/16 09/08/16 21:00 History Warfarin [Coumadin] 0.5 tab PO 2XW 09/21/15 09/09/16 09/08/16 19:00 History Warfarin [Coumadin] 3 tab PO 5XW 09/21/15 09/09/16 09/08/16 19:00 History Acetaminophen [Acetaminophen TAB] 500 mg PO Q6HR PRN #25 tablet 05/28/16 Unknown Rx Cyclobenzaprine [Flexeril] 10 mg PO TID PRN #12 tablet 05/28/16 09/09/16 Unknown Rx Ibuprofen [Motrin 600 MG tab] 600 mg PO Q8H PRN #15 tablet 07/27/16 09/09/16 Unknown Rx predniSONE [Deltasone] 40 mg PO QDAY 5 Days 07/27/16 09/09/16 Unknown Rx Dorzolamide HCl [Dorzolamide HCl] 1 drop OU BID 09/10/16 09/10/16 09/09/16 History Latanoprost 0.005% [Xalatan 0.005%] 1 drop OU QPM 09/10/16 09/10/16 09/09/16 21: 00 History Active Meds: Active Medications Acetaminophen (Tylenol) 650 mg PO Q4H PRN PRN Reason: Pain MILD(1-3)/Fever >100.5/BARILLAS Acetaminophen/Hydrocodone Bitart ([place] 5/325) 1 each PO Q6HR PRN PRN Reason: Pain Last Admin: 09/11/16 12:51 Dose: 1 each Albuterol (Proventil) 2.5 mg IH Q4HRT PRN PRN Reason: Shortness Of Breath Cyclobenzaprine HCl (Flexeril) 10 mg PO TID PRN PRN Reason: Muscle Spasm Last Admin: 09/11/16 09:13 Dose: 10 mg Enoxaparin Sodium (Lovenox) 100 mg SUB-Q Q12HR [facility] Latanoprost (Xalatan 0.005%) 1 drops OU QPM [facility] Last Admin: 09/11/16 18:05 Dose: 1 drops Magnesium Oxide (Mag-Ox) 400 mg PO QDAY [facility] Last Admin: 09/11/16 09:29 Dose: 400 mg Miscellaneous Medication (Dorzolamide) 1 drop OU BID [facility] Last Admin: 09/11/16 09:32 Dose: 1 drop Ondansetron HCl (Zofran) 4 mg IV Q8H PRN PRN Reason: N/V unrelieved by Reglan Simvastatin (Zocor) 40 mg PO QHS [facility] Last Admin: 09/10/16 21:14 Dose: 40 mg Sodium Bicarbonate (Sodium Bicarbonate) 650 mg PO TID [facility] Last Admin: 09/11/16 15:32 Dose: 650 mg Tamsulosin HCl (Flomax) 0.4 mg PO DAILY [facility] Last Admin: 09/11/16 09:30 Dose: 0.4 mg Warfarin Sodium (Coumadin Pharmacy To Dose) 1 each PO PKCONSULT [facility] PRN Reason: Protocol Warfarin Sodium (Coumadin) 4 mg PO DAILY@1700 [facility] Last Admin: 09/11/16 18:03 Dose: 4 mg Review of Systems Constitutional: chronic pain Musculoskeletal: shooting leg pain Exam - Constitutional Vitals: Temp Pulse Resp BP Pulse Ox 99.0 F 83 18 128/75 100 09/11/16 12:00 09/11/16 12:00 09/11/16 12:00 09/11/16 12:00 09/11/16 12:00 General appearance: Present: mild distress, well-nourished - EENT Eyes: Present: PERRL ENT: hearing intact, clear oral mucosa - Neck Neck: Present: supple, normal ROM - Respiratory Respiratory effort: normal Respiratory: bilateral: CTA - Cardiovascular Heart Sounds: Present: S1 & S2. Absent: rub, click - Extremities Extremities: pulses symmetrical, No edema Extremity abnormal: tenderness Peripheral Pulses: within normal limits - Abdominal General gastrointestinal: Present: soft, non-tender, non-distended, normal bowel sounds Male genitourinary: Present: deferred - Rectal Rectal Exam: deferred - Integumentary Integumentary: Present: clear, warm, dry - Musculoskeletal Musculoskeletal: gait normal, strength equal bilaterally - Psychiatric Psychiatric: appropriate mood/affect, intact judgment & insight - Neurologic Neurologic: CNII-XII intact, moves all extremities Results - Labs CBC & Chem 7: 09/11/16 05:06 09/11/16 05:06 Labs: Abnormal lab results 09/10/16 09/11/16 09/11/16 Range/Units 20:30 05:06 05:06 Hgb 10.2 L (11.8-15.2) gm/dl Hct 32.0 L (35.5-45.6) % MCH 27 L (28-32) pg RDW 18.0 H (13.2-15.2) % [place] % (Auto) 9.4 H (0.0-7.3) % PT (12.2-14.9) Sec. INR (0.87-1.13) Sodium 136 L (137-145) mmol/L Carbon Dioxide 18 L 15 L (22-30) mmol/L BUN 71 H 63 H (9-20) mg/dL Creatinine 2.4 H 2.1 H (0.8-1.5) mg/dL Glucose 166 H 160 H (75-100) mg/dL Magnesium 1.50 L (1.7-2.3) mg/dL 09/11/16 Range/Units 10:42 Hgb (11.8-15.2) gm/dl Hct (35.5-45.6) % MCH (28-32) pg RDW (13.2-15.2) % [place] % (Auto) (0.0-7.3) % PT 20.7 H (12.2-14.9) Sec. INR 1.68 H (0.87-1.13) Sodium (137-145) mmol/L Carbon Dioxide (22-30) mmol/L BUN (9-20) mg/dL Creatinine (0.8-1.5) mg/dL Glucose (75-100) mg/dL Magnesium (1.7-2.3) mg/dL Assessment and Plan - Patient Problems (1) Acute on chronic renal insufficiency Current Visit: Yes Status: Acute Plan to address problem: Hydration., labs. (2) Type 2 diabetes mellitus with diabetic chronic kidney disease Current Visit: Yes Status: Acute Qualifiers: Diabetes mellitus produce assistant insulin use: D Chronic kidney disease stage: C Plan to address problem: BG control. (3) Hypotension Current Visit: Yes Status: Acute Qualifiers: Hypotension type: H Trimester: T Plan to address problem: Hydration, adjust BP meds. (4) Hypercoagulable state Current Visit: Yes Status: Acute Plan to address problem: Monitor ,and control PT/INR, with coumadin.
[2016-09-11] MEDS: ZOCOR PO SCH (21:11)
[2016-09-11] MEDS: LOVENOX SUB-Q SCH (21:17)
[2016-09-12 07:46] LABS: INR 1.33 (0.87-1.13)
[2016-09-12] MEDS ORDERED: COUMADIN PO ONE (10:00)
[2016-09-12] MEDS: LOVENOX SUB-Q SCH (10:27)
[2016-09-12] MEDS: FLEXERIL PO PRN (10:27)
[2016-09-12] MEDS: FLOMAX PO SCH (10:27)
[2016-09-12] MEDS: MAG-OX PO SCH (10:27)
[2016-09-12] MEDS: DORZOLAMIDE OU SCH ×2 (10:28→21:00)
[2016-09-12] MEDS: NORCO 5/325 PO PRN (10:28)
[2016-09-12] MEDS: SODIUM BICARBONATE PO SCH ×3 (10:34→21:00)
--- NOTE | 2016-09-12 10:44 | Progress Note ---
Assessment and Plan - Patient Problems (1) Acute on chronic renal insufficiency Current Visit: Yes Status: Acute Plan to address problem: Acute kidney injury probably prerenal azotemia secondary to hypotension. Urinalysis is bland. Renal function improved with last Cr down to 2.1mg/dl. avoid nephrotoxins, NSAIDs, IV contrast (2) Hyperkalemia Current Visit: Yes Status: Acute Plan to address problem: resolved (3) Hyponatremia Current Visit: Yes Status: Acute Plan to address problem: Depletional hyponatremia. Na improved with volume repletion (4) Hypertensive chronic kidney disease with stage 1 through stage 4 chronic kidney disease, or unspecified chronic kidney disease Current Visit: Yes Status: Acute Plan to address problem: Monitor BP off meds for now. (5) Type 2 diabetes mellitus with diabetic chronic kidney disease Current Visit: Yes Status: Acute Qualifiers: Diabetes mellitus manager long term care insulin use: D Chronic kidney disease stage: C Plan to address problem: Blood sugar management by primary attending (6) Metabolic acidosis Current Visit: Yes Status: Acute Plan to address problem: cont Na bicarb 650mg po tid Subjective Date of service: 09/12/16 Interval history: Pt awake, alert, c/o LLE pain, venous duplex of LLE negative for DVT. Objective - Vital Signs Vital signs: Vital Signs - 12hr 09/12/16 00:00 Temperature 97.4 F L Pulse Rate [ 82 Right] Respiratory 22 Rate Blood Pressure 124/65 [Right Arm] O2 Sat by Pulse 97 Oximetry - General Appearance General appearance: well-developed, well-nourished, appears stated age EENT: ATNC, PERRL, mucous membranes moist Neck: no JVD Respiratory: Present: Clear to Ascultation Cardiology: regular, S1S2 Gastrointestinal: normal, normoactive bowel sounds Integumentary: no rash, other (no edema ) Neurologic: no focal deficit, alert and oriented x3, strength 5/5, CN 3-12 intact Psychiatric: mood/affect appropriate, cooperative - Lab 09/11/16 05:06 09/11/16 05:06 Most recent lab results Calcium 8.9 mg/dL (8.4-10.2) 09/11/16 05:06 Magnesium 1.50 mg/dL (1.7-2.3) L 09/11/16 05:06 Urine Creatinine 156.2 mg/dL (0.1-20.0) H 09/10/16 07:20 Urine Sodium 38 mEq/L 09/10/16 07:20
--- NOTE | 2016-09-12 13:26 | Progress Note ---
Assessment and Plan Assessment and plan: --Osteoarthritis left knee check left knee x-ray, consider physical therapy, orthopedic evaluation if needed -- Acute on chronic kidney disease stage III Current Visit: Yes Status: Acute Plan to address problem: Renal function improving continue IV hydration, input output monitoring, closely monitor renal function, avoid nephrotoxic medications, --History of Pulmonary embolism Current Visit: No Status: Acute Qualifiers: Pulmonary embolism type: P Chronicity: C Acute cor pulmonale presence: A Plan to address problem: Subtherapeutic INR ,resume coumadin, DC Lovenox [discussed with director of placement agreed] target INR 2-3 , hematology following --Hyper coag state continue chronic anticoagulation --Chronic Right leg DVT Current Visit: No Status: Acute Qualifiers: Affected thrombotic vein of extremity: A Chronicity: C Plan to address problem: Subtherapeutic INR ,resume coumadin, DC planning. Case management Follow x-ray left knee, if abnormal, consult orthopedic Plan of care discussed with the patient, his nurse, case management History Interval history: Patient seen and evaluated in his old medical records reviewed Patient complains of left knee pain and swelling Alert awake oriented 3 not in acute distress Vital signs stable INR subtherapeutic Hospitalist Physical - Constitutional Vitals: Temp Pulse Resp BP Pulse Ox 98.5 F 77 20 112/56 100 09/12/16 12:00 09/12/16 12:00 09/12/16 12:00 09/12/16 12:00 09/12/16 12:00 General appearance: Present: mild distress, well-nourished - EENT Eyes: Present: PERRL, EOM intact - Neck Neck: Present: supple, normal ROM - Respiratory Respiratory effort: normal Respiratory: negative: rales, rhonchi, wheezing - Cardiovascular Rhythm: regular Heart Sounds: Present: S1 & S2 - Extremities Extremities: no ischemia, pulses intact, abnormal (left knee joint swelling or tenderness) - Abdominal General gastrointestinal: soft, non-tender, non-distended, normal bowel sounds - Integumentary Integumentary: Present: clear, warm - Psychiatric Psychiatric: appropriate mood/affect, cooperative - Neurologic Neurologic: CNII-XII intact, moves all extremities Results - Labs CBC & Chem 7: 09/11/16 05:06 09/11/16 05:06 Labs: Laboratory Last Values WBC 8.4 K/mm3 (4.5-11.0) 09/11/16 05:06 RBC 3.78 M/mm3 (3.65-5.03) 09/11/16 05:06 Hgb 10.2 gm/dl (11.8-15.2) L 09/11/16 05:06 Hct 32.0 % (35.5-45.6) L 09/11/16 05:06 MCV 85 fl (84-94) 09/11/16 05:06 MCH 27 pg (28-32) L 09/11/16 05:06 MCHC 32 % (32-34) 09/11/16 05:06 RDW 18.0 % (13.2-15.2) H 09/11/16 05:06 Plt Count 320 K/mm3 (140-440) 09/11/16 05:06 Lymph % (Auto) 20.9 % (13.4-35.0) 09/11/16 05:06 [place] % (Auto) 9.4 % (0.0-7.3) H 09/11/16 05:06 Eos % (Auto) 3.1 % (0.0-4.3) 09/11/16 05:06 Baso % (Auto) 0.3 % (0.0-1.8) 09/11/16 05:06 Lymph # 1.7 K/mm3 (1.2-5.4) 09/11/16 05:06 [place] # 0.8 K/mm3 (0.0-0.8) 09/11/16 05:06 Eos # 0.3 K/mm3 (0.0-0.4) 09/11/16 05:06 Baso # 0.0 K/mm3 (0.0-0.1) 09/11/16 05:06 Seg Neutrophils % 66.3 % (40.0-70.0) 09/11/16 05:06 Seg Neutrophils # 5.5 K/mm3 (1.8-7.7) 09/11/16 05:06 PT 17.2 Sec. (12.2-14.9) H 09/12/16 06:55 INR 1.33 (0.87-1.13) H 09/12/16 06:55 APTT 33.9 Sec. (24.2-36.6) 09/09/16 12:42 Sodium 137 mmol/L (137-145) 09/11/16 05:06 Potassium 4.8 mmol/L (3.6-5.0) 09/11/16 05:06 Chloride 105.6 mmol/L (98-107) 09/11/16 05:06 Carbon Dioxide 15 mmol/L (22-30) L 09/11/16 05:06 Anion Gap 21 mmol/L 09/11/16 05:06 BUN 63 mg/dL (9-20) H 09/11/16 05:06 Creatinine 2.1 mg/dL (0.8-1.5) H 09/11/16 05:06 Estimated GFR 38 ml/min 09/11/16 05:06 BUN/Creatinine Ratio 30.00 % 09/11/16 05:06 Glucose 160 mg/dL (75-100) H 09/11/16 05:06 POC Glucose 135 (70-105) H 09/09/16 12:01 Lactic Acid 1.50 mmol/L (0.7-2.0) 09/09/16 15:52 Uric Acid 11.8 mg/dL (3.5-7.6) H 09/11/16 21:17 Calcium 8.9 mg/dL (8.4-10.2) 09/11/16 05:06 Magnesium 1.50 mg/dL (1.7-2.3) L 09/11/16 05:06 Total Bilirubin 0.30 mg/dL (0.1-1.2) 09/09/16 12:42 AST 11 units/L (5-40) 09/09/16 12:42 ALT 10 units/L (7-56) 09/09/16 12:42 Alkaline Phosphatase 59 units/L (35-129) 09/09/16 12:42 Total Protein 6.7 g/dL (6.3-8.2) 09/09/16 12:42 Albumin 3.7 g/dL (3.9-5) L 09/09/16 12:42 Albumin/Globulin Ratio 1.2 % 09/09/16 12:42 Urine Color Yellow (Yellow) 09/10/16 07:20 Urine Turbidity Clear (Clear) 09/10/16 07:20 Urine pH 5.0 (5.0-7.0) 09/10/16 07:20 Ur Specific [place] 1.010 (1.003-1.030) 09/10/16 07:20 Urine Protein <15 mg/dl mg/dL (Negative) 09/10/16 07:20 Urine Glucose (UA) Neg mg/dL (Negative) 09/10/16 07:20 Urine Ketones Neg mg/dL (Negative) 09/10/16 07:20 Urine Blood Neg (Negative) 09/10/16 07:20 Urine Nitrite Neg (Negative) 09/10/16 07:20 Urine Bilirubin Neg (Negative) 09/10/16 07:20 Urine Urobilinogen < 2.0 mg/dL (<2.0) 09/10/16 07:20 Ur Leukocyte Esterase Neg (Negative) 09/10/16 07:20 Urine WBC (Auto) 1.0 /HPF (0.0-6.0) 09/10/16 07:20 Urine RBC (Auto) 1.0 /HPF (0.0-6.0) 09/10/16 07:20 U Epithel Cells (Auto) < 1.0 /HPF (0-13.0) 09/10/16 07:20 Urine Mucus Few /HPF 09/10/16 07:20 Urine Creatinine 156.2 mg/dL (0.1-20.0) H 09/10/16 07:20 Urine Sodium 38 mEq/L 09/10/16 07:20
--- NOTE | 2016-09-12 14:51 | XRay Report ---
LEFT KNEE, 3 views: History: Left knee pain and swelling A large joint effusion is identified. There are moderate osteoarthritic changes in the medial compartment. Mild retropatellar spurring. No evidence for fracture or bone lesion. IMPRESSION: Osteoarthritic changes. Large joint effusion.
[2016-09-12] MEDS: COUMADIN PO SCH (16:27)
[2016-09-12] MEDS: XALATAN 0.005% OU SCH (18:57)
[2016-09-12] MEDS: ZOCOR PO SCH (21:00)
--- NOTE | 2016-09-12 22:29 | Consultation ---
History of Present Illness - Reason for Consult Consult date: 09/12/16 - History of Present Illness Patient seen/examined, labs reviewed, scans reviewed, left knee xray showed large joint effusion explaining the pain, will ask IR to drain, and send fluid for cytology/culture.Doppler us still pending result. 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 denies: smoking (smoking about 4 years ago), alcohol abuse (with drinking alcohol about 4-5 years ago), prescription drug abuse Family history: CAD (Father of acute myocardial infarction at 62 he had peripheral vascular disease. One brother of heart disease he had hypertension and end-stage renal disease on dialysis), cancer (one sister of metastatic breast cancer following recurrence), diabetes, hypertension (one sister has diabetes and hypertension she is 82 years old and another sister has hyperlipidemia), other (other at age 96 of natural causes) Medications and Allergies Allergies Allergy/AdvReac Type Severity Reaction Status Date / Time No Known Allergies Allergy Verified 07/27/16 07:52 Home Medications Medication Instructions Recorded Confirmed Last Taken Type Hydrochlorothiazide 12.5 mg PO QDAY 02/05/13 09/09/16 09/09/16 10:00 History Insulin Aspart Prot/Aspart(Nf) 45 unit SQ QPM 02/05/13 09/09/16 11/23/14 History [NovoLOG Mix 70/30 VIAL] Insulin Aspart Prot/Aspart(Nf) 70 units SC QAM 02/05/13 09/09/16 09/07/16 10:00 History [NovoLOG Mix 70/30 VIAL] Lisinopril [Zestril TAB] 20 mg PO QDAY 02/05/13 09/09/16 09/09/16 10:00 History Simvastatin 40 mg PO QHS 02/05/13 09/09/16 09/08/16 18:00 History metFORMIN [Glucophage] 500 mg PO BID 02/05/13 09/09/16 09/09/16 10:00 History Colchicine [Colcrys] 0.6 mg PO BID #10 tab 09/21/15 09/09/16 Unknown Rx Dexamethasone [Decadron] 4 mg PO DAILY #5 tablet 09/21/15 09/09/16 Unknown Rx Febuxostat (Nf) [Uloric (Nf)] 40 mg PO PRN 09/21/15 09/09/16 Unknown History HYDROcodone/APAP 5-325 [[place] 1 each PO Q6HR PRN #12 tablet 09/21/15 09/09/16 Unknown Rx 5/325] Insulin Lispro [HumaLOG VIAL] 3 units SQ AC 09/21/15 09/09/16 Unknown History [place]-3/Dha/Epa/Fish Oil [[place] 1 gram PO DAILY 09/21/15 09/09/16 09/08/16 18: 00 History Fish Oil 1,000 mg Sftg] Tamsulosin [Flomax] 0.4 mg PO DAILY 09/21/15 09/09/16 09/08/16 21:00 History Warfarin [Coumadin] 0.5 tab PO 2XW 09/21/15 09/09/16 09/08/16 19:00 History Warfarin [Coumadin] 3 tab PO 5XW 09/21/15 09/09/16 09/08/16 19:00 History Acetaminophen [Acetaminophen TAB] 500 mg PO Q6HR PRN #25 tablet 05/28/16 Unknown Rx Cyclobenzaprine [Flexeril] 10 mg PO TID PRN #12 tablet 05/28/16 09/09/16 Unknown Rx Ibuprofen [Motrin 600 MG tab] 600 mg PO Q8H PRN #15 tablet 07/27/16 09/09/16 Unknown Rx predniSONE [Deltasone] 40 mg PO QDAY 5 Days 07/27/16 09/09/16 Unknown Rx Dorzolamide HCl [Dorzolamide HCl] 1 drop OU BID 09/10/16 09/10/16 09/09/16 History Latanoprost 0.005% [Xalatan 0.005%] 1 drop OU QPM 09/10/16 09/10/16 09/09/16 21: 00 History Active Meds: Active Medications Acetaminophen (Tylenol) 650 mg PO Q4H PRN PRN Reason: Pain MILD(1-3)/Fever >100.5/[place] Acetaminophen/Hydrocodone Bitart ([place] 5/325) 1 each PO Q6HR PRN PRN Reason: Pain Last Admin: 09/12/16 10:28 Dose: 1 each Albuterol (Proventil) 2.5 mg IH Q4HRT PRN PRN Reason: Shortness Of Breath Cyclobenzaprine HCl (Flexeril) 10 mg PO TID PRN PRN Reason: Muscle Spasm Last Admin: 09/12/16 10:27 Dose: 10 mg Latanoprost (Xalatan 0.005%) 1 drops OU QPM [facility] Last Admin: 09/12/16 18:57 Dose: 1 drops Magnesium Oxide (Mag-Ox) 400 mg PO QDAY [facility] Last Admin: 09/12/16 10:27 Dose: 400 mg Miscellaneous Medication (Dorzolamide) 1 drop OU BID [facility] Last Admin: 09/12/16 21:00 Dose: 1 drop Ondansetron HCl (Zofran) 4 mg IV Q8H PRN PRN Reason: N/V unrelieved by Reglan Simvastatin (Zocor) 40 mg PO QHS [facility] Last Admin: 09/12/16 21:00 Dose: 40 mg Sodium Bicarbonate (Sodium Bicarbonate) 650 mg PO TID [facility] Last Admin: 09/12/16 21:00 Dose: 650 mg Tamsulosin HCl (Flomax) 0.4 mg PO DAILY [facility] Last Admin: 09/12/16 10:27 Dose: 0.4 mg Warfarin Sodium (Coumadin Pharmacy To Dose) 1 each PO PKCONSULT [facility] PRN Reason: Protocol Warfarin Sodium (Coumadin) 10 mg PO DAILY@1700 [facility] Last Admin: 09/12/16 16:27 Dose: 10 mg Review of Systems Constitutional: chronic pain Musculoskeletal: low back pain, shooting leg pain Exam - Constitutional Vitals: Temp Pulse Resp BP Pulse Ox 99.3 F 77 20 113/60 97 09/12/16 15:00 09/12/16 15:00 09/12/16 15:00 09/12/16 15:00 09/12/16 15:00 General appearance: Present: mild distress, well-nourished - EENT Eyes: Present: PERRL ENT: hearing intact, clear oral mucosa - Neck Neck: Present: supple, normal ROM - Respiratory Respiratory effort: normal Respiratory: bilateral: CTA - Cardiovascular Heart Sounds: Present: S1 & S2. Absent: rub, click - Extremities Extremities: pulses symmetrical, No edema Peripheral Pulses: within normal limits - Abdominal General gastrointestinal: Present: soft, non-tender, non-distended, normal bowel sounds Male genitourinary: Present: deferred - Rectal Rectal Exam: deferred - Integumentary Integumentary: Present: clear, warm, dry - Musculoskeletal Musculoskeletal: gait normal, strength equal bilaterally - Psychiatric Psychiatric: appropriate mood/affect, intact judgment & insight - Neurologic Neurologic: CNII-XII intact, moves all extremities Results - Labs CBC & Chem 7: 09/11/16 05:06 09/11/16 05:06 Labs: Abnormal lab results 09/12/16 Range/Units 06:55 PT 17.2 H (12.2-14.9) Sec. INR 1.33 H (0.87-1.13) Assessment and Plan - Patient Problems (1) Acute on chronic renal insufficiency Current Visit: Yes Status: Acute Plan to address problem: Hydration., labs. 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 (3) Hypotension Current Visit: Yes Status: Acute Qualifiers: Hypotension type: H Trimester: T Plan to address problem: Hydration, adjust BP meds. (4) Hypercoagulable state Current Visit: Yes Status: Acute Plan to address problem: Monitor ,and control PT/INR, with coumadin. (5) Joint effusion of knee Current Visit: Yes Status: Acute Plan to address problem: IR to tap, and send fluid for study.
[2016-09-13 05:56] LABS: Hematocrit 29.9 % (35.5-45.6); Hemoglobin 9.5 gm/dl (11.8-15.2); Mean Corpuscular HGB Conc 32 % (32-34); Mean Corpuscular Hemoglobin 28 pg (28-32); Mean Corpuscular Volume 87 fl (84-94); Red Blood Count 3.44 M/mm3 (3.65-5.03); Red Cell Distribution Width 18.3 % (13.2-15.2); White Blood Count 9.5 K/mm3 (4.5-11.0)
[2016-09-13 06:05] LABS: INR 1.37 (0.87-1.13)
[2016-09-13 06:07] LABS: BUN/Creatinine Ratio 26.66; Calcium 8.9 mg/dL (8.4-10.2); Chloride 103.1 mmol/L (98-107); Magnesium 1.8 mg/dL (1.7-2.3); Potassium 4.1 mmol/L (3.6-5.0)
[2016-09-13 06:40] LABS: Platelet Count 321 K/mm3 (140-440)
[2016-09-13] MEDS: NORCO 5/325 PO PRN ×3 (07:36→18:02)
--- NOTE | 2016-09-13 08:37 | Query- Renal Failure ---
Sherlyn Rbieiro___Eyal Date:___09/13/2016 Circular Knitter Helper/CDS:___Cynthia Phone#:__[phone] Exercise your independent professional judgment when responding to query. Questions asked do not imply a particular answer is desired or expected. We greatly appreciate your clarification on this issue. Clinical Documentation States: 66 year old male was admitted on 09/09/2016. The Nephrology progress note on 09/12/16 states "Assessment and Plan - Patient Problems (1) Acute on chronic renal insufficiency Current Visit: Yes Status: Acute Plan to address problem: Acute kidney injury probably prerenal azotemia secondary to hypotension. Urinalysis is bland. Renal function improved with last Cr down to 2.1mg/dl. avoid nephrotoxins, NSAIDs, IV contrast" Clinical Findings Show: Creatinine: 3.7 Please clarify if you mean: Acute Renal Failure with or due to: [ ] Tubular Necrosis [ ] Medullary Necrosis [ ] Vasomotor Nephropathy [ ] Shock Kidney [ ] Tubular Nephrosis [ ] Renal Tubular Stasis [ ] Cortical Necrosis [ ] Acute Renal Failure (unspecified) [ ] Lower Tubular Nephrosis [x ] Other:_Vasomotor nephropathy , prerenal azotemia [ ] Not Applicable Present on Admission: [x ] Yes (Y) [ ] Clinically undeterminable (W) [ ] No (N) Please also document response in your Progress Notes and/or Discharge Summary and indicate if the condition was present on admission. HUSEYIN
--- NOTE | 2016-09-13 09:26 | Progress Note ---
Assessment and Plan - Patient Problems (1) Acute on chronic renal insufficiency Current Visit: Yes Status: Acute Plan to address problem: Renal function stable with Cr at 2.1mg/dl, close to baseline avoid nephrotoxins, NSAIDs, IV contrast (2) Hyperkalemia Current Visit: Yes Status: Acute Plan to address problem: resolved (3) Hyponatremia Current Visit: Yes Status: Acute Plan to address problem: Depletional hyponatremia. Na improved with volume repletion (4) Hypertensive chronic kidney disease with stage 1 through stage 4 chronic kidney disease, or unspecified chronic kidney disease Current Visit: Yes Status: Acute Plan to address problem: Monitor BP off meds for now. (5) Type 2 diabetes mellitus with diabetic chronic kidney disease Current Visit: Yes Status: Acute Qualifiers: Diabetes mellitus director long term care insulin use: D Chronic kidney disease stage: C Plan to address problem: Blood sugar management by primary attending (6) Metabolic acidosis Current Visit: Yes Status: Acute Plan to address problem: cont Na bicarb 650mg po tid Subjective Date of service: 09/13/16 Interval history: pt awake, alert, still c/o L knee pain/ knee XR showing large joint effusion Objective - Vital Signs Vital signs: Vital Signs - 12hr 09/12/16 09/12/16 09/13/16 22:00 23:30 03:20 Temperature 98.7 F 98.3 F Pulse Rate [ 77 94 H 71 Right] Respiratory 20 20 20 Rate Blood Pressure 121/62 108/60 [Right Arm] O2 Sat by Pulse 97 96 96 Oximetry 09/13/16 07:00 Temperature 98.8 F Pulse Rate [ 93 H Right] Respiratory 19 Rate Blood Pressure 150/70 [Right Arm] O2 Sat by Pulse 97 Oximetry - General Appearance General appearance: well-developed, well-nourished, appears stated age EENT: ATNC, PERRL, mucous membranes moist Neck: no JVD Respiratory: Present: Clear to Ascultation Cardiology: regular, S1S2 Gastrointestinal: normal, normoactive bowel sounds Integumentary: no rash, other (no edema) Neurologic: no focal deficit, alert and oriented x3, strength 5/5, CN 3-12 intact Musculoskeletal: joint swelling (b/l Knee warmth, swelling L >R) Psychiatric: mood/affect appropriate, cooperative - Lab 09/13/16 04:54 09/13/16 04:54 Most recent lab results Calcium 8.9 mg/dL (8.4-10.2) 09/13/16 04:54 Magnesium 1.80 mg/dL (1.7-2.3) 09/13/16 04:54 Urine Creatinine 156.2 mg/dL (0.1-20.0) H 09/10/16 07:20 Urine Sodium 38 mEq/L 09/10/16 07:20
[2016-09-13] MEDS: MAG-OX PO SCH (09:33)
[2016-09-13] MEDS: SODIUM BICARBONATE PO SCH ×3 (09:33→23:21)
[2016-09-13] MEDS: FLOMAX PO SCH (09:34)
[2016-09-13] MEDS: DORZOLAMIDE OU SCH ×2 (09:34→23:22)
--- NOTE | 2016-09-13 11:03 | Vascular Lab Report ---
Left Lower Extremity Venous Duplex Study: Reason for Exam: Pain of the left lower extremity. Comments on the Right: A limited duplex study was done of the proximal veins of the right lower extremity. All veins visualized are freely compressible without evidence of internal echogenicity. Flow is spontaneous and phasic throughout. No evidence of acute or chronic thrombus is seen in any of the vessels visualized. Comments on the Left: Chronic nonocclusive deep venous thrombosis is noted in the peroneal, posterior tibial, popliteal veins.. The remaining veins visualized are freely compressible without evidence of internal echogenicity. Spontaneous and phasic flow is present proximally. Impression: Chronic deep venous thrombosis in the left lower extremity
--- NOTE | 2016-09-13 13:51 | Progress Note ---
Assessment and Plan Assessment and plan: --Osteoarthritis left knee/large knee joint effusion Orthopedic consulted for possible arthrocentesis , physical therapy, pain medications Pending orthopedic evaluation , --History of gout patient is on colchicine at home however the medication is held in view of acute renal failure We'll manage with low-dose steroids , pain medications -- Acute on chronic kidney disease stage III Renal function improving continue IV hydration, input output monitoring, closely monitor renal function, avoid nephrotoxic medications, nephrology following --History of Pulmonary embolism/hypercoagulable state Subtherapeutic INR , adjust coumadin, target INR 2-3 , hematology following --Chronic Right leg DVT Subtherapeutic INR , closely monitor INR and adjust Coumadin dose DC planning. Case management Follow-up the evaluation and recommendations Possible discharge home with home health when medically stable Physical therapy occupational therapy Plan of care discussed with the patient and his nurse History Interval history: Patient seen and evaluated in his room this morning medical records reviewed Left knee pain slightly improved, orthopedic consultation for possible arthrocentesis Denies chest pain or shortness of breath Alert awake oriented 3 not in acute distress, vital signs reviewed Hospitalist Physical - Constitutional Vitals: Temp Pulse Resp BP Pulse Ox 98.8 F 93 H 19 150/70 97 09/13/16 07:00 09/13/16 07:00 09/13/16 07:00 09/13/16 07:00 09/13/16 07:00 General appearance: Present: no acute distress, well-nourished, obese - EENT Eyes: Present: PERRL, EOM intact - Neck Neck: Present: supple, normal ROM - Respiratory Respiratory effort: normal Respiratory: bilateral: diminished, negative: rales, rhonchi, wheezing - Cardiovascular Rhythm: regular Heart Sounds: Present: S1 & S2 - Extremities Extremities: no ischemia, No edema, abnormal (left knee effusion, arthritis) - Abdominal General gastrointestinal: soft, non-tender, non-distended, normal bowel sounds - Integumentary Integumentary: Present: clear, warm - Psychiatric Psychiatric: appropriate mood/affect, cooperative - Neurologic Neurologic: CNII-XII intact, moves all extremities Results - Labs CBC & Chem 7: 09/13/16 04:54 09/13/16 04:54 Labs: Laboratory Last Values WBC 9.5 K/mm3 (4.5-11.0) 09/13/16 04:54 RBC 3.44 M/mm3 (3.65-5.03) L 09/13/16 04:54 Hgb 9.5 gm/dl (11.8-15.2) L 09/13/16 04:54 Hct 29.9 % (35.5-45.6) L 09/13/16 04:54 MCV 87 fl (84-94) 09/13/16 04:54 MCH 28 pg (28-32) 09/13/16 04:54 MCHC 32 % (32-34) 09/13/16 04:54 RDW 18.3 % (13.2-15.2) H 09/13/16 04:54 Plt Count 321 K/mm3 (140-440) 09/13/16 04:54 Lymph % (Auto) [employer] 09/13/16 04:54 [place] % (Auto) Terrestrial Ecologist 09/13/16 04:54 Eos % (Auto) Terrestrial Ecologist 09/13/16 04:54 Baso % (Auto) Terrestrial Ecologist 09/13/16 04:54 Lymph # Terrestrial Ecologist 09/13/16 04:54 [place] # Terrestrial Ecologist 09/13/16 04:54 Eos # Terrestrial Ecologist 09/13/16 04:54 Baso # Terrestrial Ecologist 09/13/16 04:54 Seg Neutrophils % Terrestrial Ecologist 09/13/16 04:54 Seg Neutrophils # Terrestrial Ecologist 09/13/16 04:54 PT 17.6 Sec. (12.2-14.9) H 09/13/16 04:54 INR 1.37 (0.87-1.13) H 09/13/16 04:54 APTT 33.9 Sec. (24.2-36.6) 09/09/16 12:42 Sodium 136 mmol/L (137-145) L 09/13/16 04:54 Potassium 4.1 mmol/L (3.6-5.0) 09/13/16 04:54 Chloride 103.1 mmol/L (98-107) 09/13/16 04:54 Carbon Dioxide 19 mmol/L (22-30) L 09/13/16 04:54 Anion Gap 18 mmol/L 09/13/16 04:54 BUN 56 mg/dL (9-20) H 09/13/16 04:54 Creatinine 2.1 mg/dL (0.8-1.5) H 09/13/16 04:54 Estimated GFR 38 ml/min 09/13/16 04:54 BUN/Creatinine Ratio 26.66 % 09/13/16 04:54 Glucose 156 mg/dL (75-100) H 09/13/16 04:54 POC Glucose 250 (70-105) H 09/13/16 11:37 Lactic Acid 1.50 mmol/L (0.7-2.0) 09/09/16 15:52 Uric Acid 11.8 mg/dL (3.5-7.6) H 09/11/16 21:17 Calcium 8.9 mg/dL (8.4-10.2) 09/13/16 04:54 Magnesium 1.80 mg/dL (1.7-2.3) 09/13/16 04:54 Total Bilirubin 0.30 mg/dL (0.1-1.2) 09/09/16 12:42 AST 11 units/L (5-40) 09/09/16 12:42 ALT 10 units/L (7-56) 09/09/16 12:42 Alkaline Phosphatase 59 units/L (35-129) 09/09/16 12:42 Total Protein 6.7 g/dL (6.3-8.2) 09/09/16 12:42 Albumin 3.7 g/dL (3.9-5) L 09/09/16 12:42 Albumin/Globulin Ratio 1.2 % 09/09/16 12:42 Urine Color Yellow (Yellow) 09/10/16 07:20 Urine Turbidity Clear (Clear) 09/10/16 07:20 Urine pH 5.0 (5.0-7.0) 09/10/16 07:20 Ur Specific [place] 1.010 (1.003-1.030) 09/10/16 07:20 Urine Protein <15 mg/dl mg/dL (Negative) 09/10/16 07:20 Urine Glucose (UA) Neg mg/dL (Negative) 09/10/16 07:20 Urine Ketones Neg mg/dL (Negative) 09/10/16 07:20 Urine Blood Neg (Negative) 09/10/16 07:20 Urine Nitrite Neg (Negative) 09/10/16 07:20 Urine Bilirubin Neg (Negative) 09/10/16 07:20 Urine Urobilinogen < 2.0 mg/dL (<2.0) 09/10/16 07:20 Ur Leukocyte Esterase Neg (Negative) 09/10/16 07:20 Urine WBC (Auto) 1.0 /HPF (0.0-6.0) 09/10/16 07:20 Urine RBC (Auto) 1.0 /HPF (0.0-6.0) 09/10/16 07:20 U Epithel Cells (Auto) < 1.0 /HPF (0-13.0) 09/10/16 07:20 Urine Mucus Few /HPF 09/10/16 07:20 Urine Creatinine 156.2 mg/dL (0.1-20.0) H 09/10/16 07:20 Urine Sodium 38 mEq/L 09/10/16 07:20
[2016-09-13] MEDS: DELTASONE PO SCH (14:46)
--- NOTE | 2016-09-13 14:56 | Consultation ---
History of Present Illness - [facility] Consult date: 09/13/16 Consult reason: joint pain History of present illness: 66-year-old male who complains of left knee pain and swelling off and on for the last several years patient states that the pain is gotten progressively worse within the last several days. Was seen in the emergency room and admitted for low blood pressure. 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 denies: smoking (smoking about 4 years ago), alcohol abuse (with drinking alcohol about 4-5 years ago), prescription drug abuse Family history: CAD (Father of acute myocardial infarction at 62 he had peripheral vascular disease. One brother of heart disease he had hypertension and end-stage renal disease on dialysis), cancer (one sister of metastatic breast cancer following recurrence), diabetes, hypertension (one sister has diabetes and hypertension she is 82 years old and another sister has hyperlipidemia), other (other at age 96 of natural causes) Medications and Allergies Allergies Allergy/AdvReac Type Severity Reaction Status Date / Time No Known Allergies Allergy Verified 07/27/16 07:52 Home Medications Medication Instructions Recorded Confirmed Last Taken Type Hydrochlorothiazide 12.5 mg PO QDAY 02/05/13 09/09/16 09/09/16 10:00 History Insulin Aspart Prot/Aspart(Nf) 45 unit SQ QPM 02/05/13 09/09/16 11/23/14 History [NovoLOG Mix 70/30 VIAL] Insulin Aspart Prot/Aspart(Nf) 70 units SC QAM 02/05/13 09/09/16 09/07/16 10:00 History [NovoLOG Mix 70/30 VIAL] Lisinopril [Zestril TAB] 20 mg PO QDAY 02/05/13 09/09/16 09/09/16 10:00 History Simvastatin 40 mg PO QHS 02/05/13 09/09/16 09/08/16 18:00 History metFORMIN [Glucophage] 500 mg PO BID 02/05/13 09/09/16 09/09/16 10:00 History Colchicine [Colcrys] 0.6 mg PO BID #10 tab 09/21/15 09/09/16 Unknown Rx Dexamethasone [Decadron] 4 mg PO DAILY #5 tablet 09/21/15 09/09/16 Unknown Rx Febuxostat (Nf) [Uloric (Nf)] 40 mg PO PRN 09/21/15 09/09/16 Unknown History HYDROcodone/APAP 5-325 [[place] 1 each PO Q6HR PRN #12 tablet 09/21/15 09/09/16 Unknown Rx 5/325] Insulin Lispro [HumaLOG VIAL] 3 units SQ AC 09/21/15 09/09/16 Unknown History [place]-3/Dha/Epa/Fish Oil [[place]-3 1 gram PO DAILY 09/21/15 09/09/16 09/08/16 18: 00 History Fish Oil 1,000 mg Sftg] Tamsulosin [Flomax] 0.4 mg PO DAILY 09/21/15 09/09/16 09/08/16 21:00 History Warfarin [Coumadin] 0.5 tab PO 2XW 09/21/15 09/09/16 09/08/16 19:00 History Warfarin [Coumadin] 3 tab PO 5XW 09/21/15 09/09/16 09/08/16 19:00 History Acetaminophen [Acetaminophen TAB] 500 mg PO Q6HR PRN #25 tablet 05/28/16 Unknown Rx Cyclobenzaprine [Flexeril] 10 mg PO TID PRN #12 tablet 05/28/16 09/09/16 Unknown Rx Ibuprofen [Motrin 600 MG tab] 600 mg PO Q8H PRN #15 tablet 07/27/16 09/09/16 Unknown Rx predniSONE [Deltasone] 40 mg PO QDAY 5 Days 07/27/16 09/09/16 Unknown Rx Dorzolamide HCl [Dorzolamide HCl] 1 drop OU BID 09/10/16 09/10/16 09/09/16 History Latanoprost 0.005% [Xalatan 0.005%] 1 drop OU QPM 09/10/16 09/10/16 09/09/16 21: 00 History Active Meds: Active Medications Acetaminophen (Tylenol) 650 mg PO Q4H PRN PRN Reason: Pain MILD(1-3)/Fever >100.5/BARILLAS Acetaminophen/Hydrocodone Bitart ([place] 5/325) 1 each PO Q6HR PRN PRN Reason: Pain Last Admin: 09/13/16 07:49 Dose: 1 each Albuterol (Proventil) 2.5 mg IH Q4HRT PRN PRN Reason: Shortness Of Breath Cyclobenzaprine HCl (Flexeril) 10 mg PO TID PRN PRN Reason: Muscle Spasm Last Admin: 09/12/16 10:27 Dose: 10 mg Latanoprost (Xalatan 0.005%) 1 drops OU QPM [facility] Last Admin: 09/12/16 18:57 Dose: 1 drops Magnesium Oxide (Mag-Ox) 400 mg PO QDAY [facility] Last Admin: 09/13/16 09:33 Dose: 400 mg Miscellaneous Medication (Dorzolamide) 1 drop OU BID [facility] Last Admin: 09/13/16 09:34 Dose: 1 drop Ondansetron HCl (Zofran) 4 mg IV Q8H PRN PRN Reason: N/V unrelieved by Regpetar Prednisone (Deltasone) 20 mg PO QDAY [facility] Last Admin: 09/13/16 14:46 Dose: 20 mg Simvastatin (Zocor) 40 mg PO QHS [facility] Last Admin: 09/12/16 21:00 Dose: 40 mg Sodium Bicarbonate (Sodium Bicarbonate) 650 mg PO TID [facility] Last Admin: 09/13/16 14:46 Dose: 650 mg Tamsulosin HCl (Flomax) 0.4 mg PO DAILY [facility] Last Admin: 09/13/16 09:34 Dose: 0.4 mg Warfarin Sodium (Coumadin Pharmacy To Dose) 1 each PO PKCONSULT [facility] PRN Reason: Protocol Warfarin Sodium (Coumadin) 10 mg PO DAILY@1700 [facility] Last Admin: 09/12/16 16:27 Dose: 10 mg Warfarin Sodium (Coumadin) 2.5 mg PO DAILY@1700 [facility] Physical Examination - Physical exam Narrative exam: Alert and oriented 3 Significant musculoskeletal exam reveals the patient to have a 1-2+ effusion left knee there were no erythema or redness he was tender about the medial joint line active range of motion and diminished was crepitus noted on passive range of motion distal neurovascular status is intact Plain x-rays were reviewed by me and show moderate degenerative changes in all 3 compartments Assessment and Plan Left knee pain secondary to osteoarthritis Recommendations- to do physical therapy patient may benefit from intra- articular corticosteroid injection, at this point patient is undecided whether or not he wants to proceed with a cortisone injection therefore we will allow him time to think about it, he decides he does wants it we will certainly [place] prior to discharge
[2016-09-13] MEDS ORDERED: DEPO-MEDROL INTRA-ARTI ONE (15:00)
[2016-09-13] MEDS ORDERED: COUMADIN PO SCH (17:00)
[2016-09-13] MEDS: NOVOLOG SUB-Q SCH ×2 (17:26→23:27)
[2016-09-13] MEDS: COUMADIN PO SCH (18:03)
[2016-09-13] MEDS: XALATAN 0.005% OU SCH (18:06)
--- NOTE | 2016-09-13 21:14 | Consultation ---
History of Present Illness - Reason for Consult Consult date: 09/13/16 - History of Present Illness Patient seen/examined, labs reviewed, case d/w patient.Notes reviewed, Doppler us consistent with chronic DVT in the left leg. 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 denies: smoking (smoking about 4 years ago), alcohol abuse (with drinking alcohol about 4-5 years ago), prescription drug abuse Family history: CAD (Father of acute myocardial infarction at 62 he had peripheral vascular disease. One brother of heart disease he had hypertension and end-stage renal disease on dialysis), cancer (one sister of metastatic breast cancer following recurrence), diabetes, hypertension (one sister has diabetes and hypertension she is 82 years old and another sister has hyperlipidemia), other (other at age 96 of natural causes) Medications and Allergies Allergies Allergy/AdvReac Type Severity Reaction Status Date / Time No Known Allergies Allergy Verified 07/27/16 07:52 Home Medications Medication Instructions Recorded Confirmed Last Taken Type Hydrochlorothiazide 12.5 mg PO QDAY 02/05/13 09/09/16 09/09/16 10:00 History Insulin Aspart Prot/Aspart(Nf) 45 unit SQ QPM 02/05/13 09/09/16 11/23/14 History [NovoLOG Mix 70/30 VIAL] Insulin Aspart Prot/Aspart(Nf) 70 units SC QAM 02/05/13 09/09/16 09/07/16 10:00 History [NovoLOG Mix 70/30 VIAL] Lisinopril [Zestril TAB] 20 mg PO QDAY 02/05/13 09/09/16 09/09/16 10:00 History Simvastatin 40 mg PO QHS 02/05/13 09/09/16 09/08/16 18:00 History metFORMIN [Glucophage] 500 mg PO BID 02/05/13 09/09/16 09/09/16 10:00 History Colchicine [Colcrys] 0.6 mg PO BID #10 tab 09/21/15 09/09/16 Unknown Rx Dexamethasone [Decadron] 4 mg PO DAILY #5 tablet 09/21/15 09/09/16 Unknown Rx Febuxostat (Nf) [Uloric (Nf)] 40 mg PO PRN 09/21/15 09/09/16 Unknown History HYDROcodone/APAP 5-325 [[place] 1 each PO Q6HR PRN #12 tablet 09/21/15 09/09/16 Unknown Rx 5/325] Insulin Lispro [HumaLOG VIAL] 3 units SQ AC 09/21/15 09/09/16 Unknown History [place]-3/Dha/Epa/Fish Oil [[place]-3 1 gram PO DAILY 09/21/15 09/09/16 09/08/16 18: 00 History Fish Oil 1,000 mg Sftg] Tamsulosin [Flomax] 0.4 mg PO DAILY 09/21/15 09/09/16 09/08/16 21:00 History Warfarin [Coumadin] 0.5 tab PO 2XW 09/21/15 09/09/16 09/08/16 19:00 History Warfarin [Coumadin] 3 tab PO 5XW 09/21/15 09/09/16 09/08/16 19:00 History Acetaminophen [Acetaminophen TAB] 500 mg PO Q6HR PRN #25 tablet 05/28/16 Unknown Rx Cyclobenzaprine [Flexeril] 10 mg PO TID PRN #12 tablet 05/28/16 09/09/16 Unknown Rx Ibuprofen [Motrin 600 MG tab] 600 mg PO Q8H PRN #15 tablet 07/27/16 09/09/16 Unknown Rx predniSONE [Deltasone] 40 mg PO QDAY 5 Days 07/27/16 09/09/16 Unknown Rx Dorzolamide HCl [Dorzolamide HCl] 1 drop OU BID 09/10/16 09/10/16 09/09/16 History Latanoprost 0.005% [Xalatan 0.005%] 1 drop OU QPM 09/10/16 09/10/16 09/09/16 21: 00 History Active Meds: Active Medications Acetaminophen (Tylenol) 650 mg PO Q4H PRN PRN Reason: Pain MILD(1-3)/Fever >100.5/[place] Acetaminophen/Hydrocodone Bitart ([place] 5/325) 1 each PO Q6HR PRN PRN Reason: Pain Last Admin: 09/13/16 18:02 Dose: 1 each Albuterol (Proventil) 2.5 mg IH Q4HRT PRN PRN Reason: Shortness Of Breath Cyclobenzaprine HCl (Flexeril) 10 mg PO TID PRN PRN Reason: Muscle Spasm Last Admin: 09/12/16 10:27 Dose: 10 mg Insulin Aspart (Novolog) 0 units SUB-Q ACHS [facility] PRN Reason: Protocol Last Admin: 09/13/16 17:26 Dose: Not Given Latanoprost (Xalatan 0.005%) 1 drops OU QPM [facility] Last Admin: 09/13/16 18:06 Dose: 1 drops Magnesium Oxide (Mag-Ox) 400 mg PO QDAY [facility] Last Admin: 09/13/16 09:33 Dose: 400 mg Miscellaneous Medication (Dorzolamide) 1 drop OU BID [facility] Last Admin: 09/13/16 09:34 Dose: 1 drop Ondansetron HCl (Zofran) 4 mg IV Q8H PRN PRN Reason: N/V unrelieved by [place]an Prednisone (Deltasone) 20 mg PO QDAY [facility] Last Admin: 09/13/16 14:46 Dose: 20 mg Simvastatin (Zocor) 40 mg PO QHS [facility] Last Admin: 09/12/16 21:00 Dose: 40 mg Sodium Bicarbonate (Sodium Bicarbonate) 650 mg PO TID [facility] Last Admin: 09/13/16 14:46 Dose: 650 mg Tamsulosin HCl (Flomax) 0.4 mg PO DAILY [facility] Last Admin: 09/13/16 09:34 Dose: 0.4 mg Warfarin Sodium (Coumadin Pharmacy To Dose) 1 each PO PKCONSULT [facility] PRN Reason: Protocol Warfarin Sodium (Coumadin) 10 mg PO DAILY@1700 [facility] Last Admin: 09/13/16 18:03 Dose: 10 mg Warfarin Sodium (Coumadin) 2.5 mg PO DAILY@1700 [facility] Last Admin: 09/13/16 18:03 Dose: 2.5 mg Review of Systems Constitutional: chronic pain Musculoskeletal: low back pain, arthritis Exam - Constitutional Vitals: Temp Pulse Resp BP Pulse Ox 98.5 F 102 H 20 132/79 97 09/13/16 16:00 09/13/16 16:00 09/13/16 16:00 09/13/16 16:00 09/13/16 07:00 General appearance: Present: no acute distress, well-nourished - EENT Eyes: Present: PERRL ENT: hearing intact, clear oral mucosa - Neck Neck: Present: supple, normal ROM - Respiratory Respiratory effort: normal Respiratory: bilateral: CTA - Cardiovascular Heart Sounds: Present: S1 & S2. Absent: rub, click - Extremities Extremities: pulses symmetrical, No edema Peripheral Pulses: within normal limits - Abdominal General gastrointestinal: Present: soft, non-tender, non-distended, normal bowel sounds Male genitourinary: Present: deferred - Rectal Rectal Exam: deferred - Integumentary Integumentary: Present: clear, warm, dry - Musculoskeletal Musculoskeletal: gait normal, strength equal bilaterally - Psychiatric Psychiatric: appropriate mood/affect, intact judgment & insight - Neurologic Neurologic: CNII-XII intact, moves all extremities Results - Labs CBC & Chem 7: 09/13/16 04:54 09/13/16 04:54 Labs: Abnormal lab results 09/13/16 09/13/16 09/13/16 Range/Units 04:54 04:54 04:54 RBC 3.44 L (3.65-5.03) M/mm3 Hgb 9.5 L (11.8-15.2) gm/dl Hct 29.9 L (35.5-45.6) % RDW 18.3 H (13.2-15.2) % PT 17.6 H (12.2-14.9) Sec. INR 1.37 H (0.87-1.13) Sodium 136 L (137-145) mmol/L Carbon Dioxide 19 L (22-30) mmol/L BUN 56 H (9-20) mg/dL Creatinine 2.1 H (0.8-1.5) mg/dL Glucose 156 H (75-100) mg/dL POC Glucose (70-105) 09/13/16 09/13/16 Range/Units 11:37 16:48 RBC (3.65-5.03) M/mm3 Hgb (11.8-15.2) gm/dl Hct (35.5-45.6) % RDW (13.2-15.2) % PT (12.2-14.9) Sec. INR (0.87-1.13) Sodium (137-145) mmol/L Carbon Dioxide (22-30) mmol/L BUN (9-20) mg/dL Creatinine (0.8-1.5) mg/dL Glucose (75-100) mg/dL POC Glucose 250 H 211 H (70-105) Assessment and Plan - Patient Problems (1) Acute on chronic renal insufficiency Current Visit: Yes Status: Acute Plan to address problem: Hydration., labs. (2) Type 2 diabetes mellitus with diabetic chronic kidney disease Current Visit: Yes Status: Acute Qualifiers: Diabetes mellitus intermediate insulin use: D Chronic kidney disease stage: C Plan to address problem: BG control. (3) Hypotension Current Visit: Yes Status: Acute Qualifiers: Hypotension type: H Trimester: T Plan to address problem: Hydration, adjust BP meds. (4) Hypercoagulable state Current Visit: Yes Status: Acute Plan to address problem: Monitor ,and control PT/INR, with coumadin. (5) Joint effusion of knee Current Visit: Yes Status: Acute Plan to address problem: IR to tap, and send fluid for study.
[2016-09-13] MEDS: ZOCOR PO SCH (23:21)
[2016-09-14] MEDS: NOVOLOG SUB-Q SCH ×4 (06:34→23:00)
[2016-09-14 08:00] LABS: INR 1.33 (0.87-1.13)
[2016-09-14] MEDS: SODIUM BICARBONATE PO SCH ×3 (08:53→21:00)
--- NOTE | 2016-09-14 09:40 | Progress Note ---
Assessment and Plan Assessment and plan: --Osteoarthritis left knee/large knee joint effusion Orthopedic evaluated , advised intra-articular steroid injection, physical therapy, pain medications , --History of gout patient is on colchicine at home however the medication is held in view of acute renal failure We'll manage with low-dose steroids , pain medications -- Acute on chronic kidney disease stage III Renal function improving continue IV hydration, input output monitoring, closely monitor renal function, avoid nephrotoxic medications, nephrology following --History of Pulmonary embolism/hypercoagulable state Subtherapeutic INR , adjust coumadin, target INR 2-3 , hematology following --Chronic Right leg DVT Subtherapeutic INR , closely monitor INR and adjust Coumadin dose DC planning. Case management Follow-up the evaluation and recommendations Possible discharge home with home health when medically stable Physical therapy occupational therapy Plan of care discussed with the patient and his nurse Also discussed the case with orthopedic surgeon History Interval history: Patient seen and evaluated medical records reviewed No new events reported by the nursing staff Left knee pain slightly improved , orthopedic evaluation and recommendations appreciated Alert awake oriented 3 ,not in acute distress Hospitalist Physical - Constitutional Vitals: Temp Pulse Resp BP Pulse Ox 98 F 98 H 22 126/80 96 09/14/16 08:00 09/14/16 08:00 09/14/16 08:00 09/14/16 08:00 09/14/16 08:00 General appearance: Present: no acute distress, well-nourished - EENT Eyes: Present: PERRL, EOM intact - Neck Neck: Present: supple, normal ROM - Respiratory Respiratory effort: normal Respiratory: negative: rales, rhonchi, wheezing - Cardiovascular Rhythm: regular Heart Sounds: Present: S1 & S2 - Extremities Extremities: no ischemia, No edema, abnormal (left knee swelling slightly improved) - Abdominal General gastrointestinal: soft, non-tender, non-distended, normal bowel sounds - Integumentary Integumentary: Present: clear, warm - Psychiatric Psychiatric: appropriate mood/affect, cooperative - Neurologic Neurologic: CNII-XII intact, moves all extremities Results - Labs CBC & Chem 7: 09/13/16 04:54 09/13/16 04:54 Labs: Laboratory Last Values WBC 9.5 K/mm3 (4.5-11.0) 09/13/16 04:54 RBC 3.44 M/mm3 (3.65-5.03) L 09/13/16 04:54 Hgb 9.5 gm/dl (11.8-15.2) L 09/13/16 04:54 Hct 29.9 % (35.5-45.6) L 09/13/16 04:54 MCV 87 fl (84-94) 09/13/16 04:54 MCH 28 pg (28-32) 09/13/16 04:54 MCHC 32 % (32-34) 09/13/16 04:54 RDW 18.3 % (13.2-15.2) H 09/13/16 04:54 Plt Count 321 K/mm3 (140-440) 09/13/16 04:54 Lymph % (Auto) Tin Can Feeder 09/13/16 04:54 [place] % (Auto) Tin Can Feeder 09/13/16 04:54 Eos % (Auto) Tin Can Feeder 09/13/16 04:54 Baso % (Auto) Tin Can Feeder 09/13/16 04:54 Lymph # Tin Can Feeder 09/13/16 04:54 [place] # Tin Can Feeder 09/13/16 04:54 Eos # Tin Can Feeder 09/13/16 04:54 Baso # Tin Can Feeder 09/13/16 04:54 Seg Neutrophils % Tin Can Feeder 09/13/16 04:54 Seg Neutrophils # Tin Can Feeder 09/13/16 04:54 PT 17.2 Sec. (12.2-14.9) H 09/14/16 07:03 INR 1.33 (0.87-1.13) H 09/14/16 07:03 APTT 33.9 Sec. (24.2-36.6) 09/09/16 12:42 Sodium 136 mmol/L (137-145) L 09/13/16 04:54 Potassium 4.1 mmol/L (3.6-5.0) 09/13/16 04:54 Chloride 103.1 mmol/L (98-107) 09/13/16 04:54 Carbon Dioxide 19 mmol/L (22-30) L 09/13/16 04:54 Anion Gap 18 mmol/L 09/13/16 04:54 BUN 56 mg/dL (9-20) H 09/13/16 04:54 Creatinine 2.1 mg/dL (0.8-1.5) H 09/13/16 04:54 Estimated GFR 38 ml/min 09/13/16 04:54 BUN/Creatinine Ratio 26.66 % 09/13/16 04:54 Glucose 156 mg/dL (75-100) H 09/13/16 04:54 POC Glucose 303 (70-105) H 09/14/16 05:34 Lactic Acid 1.50 mmol/L (0.7-2.0) 09/09/16 15:52 Uric Acid 11.8 mg/dL (3.5-7.6) H 09/11/16 21:17 Calcium 8.9 mg/dL (8.4-10.2) 09/13/16 04:54 Magnesium 1.80 mg/dL (1.7-2.3) 09/13/16 04:54 Total Bilirubin 0.30 mg/dL (0.1-1.2) 09/09/16 12:42 AST 11 units/L (5-40) 09/09/16 12:42 ALT 10 units/L (7-56) 09/09/16 12:42 Alkaline Phosphatase 59 units/L (35-129) 09/09/16 12:42 Total Protein 6.7 g/dL (6.3-8.2) 09/09/16 12:42 Albumin 3.7 g/dL (3.9-5) L 09/09/16 12:42 Albumin/Globulin Ratio 1.2 % 09/09/16 12:42 Urine Color Yellow (Yellow) 09/10/16 07:20 Urine Turbidity Clear (Clear) 09/10/16 07:20 Urine pH 5.0 (5.0-7.0) 09/10/16 07:20 Ur Specific [place] 1.010 (1.003-1.030) 09/10/16 07:20 Urine Protein <15 mg/dl mg/dL (Negative) 09/10/16 07:20 Urine Glucose (UA) Neg mg/dL (Negative) 09/10/16 07:20 Urine Ketones Neg mg/dL (Negative) 09/10/16 07:20 Urine Blood Neg (Negative) 09/10/16 07:20 Urine Nitrite Neg (Negative) 09/10/16 07:20 Urine Bilirubin Neg (Negative) 09/10/16 07:20 Urine Urobilinogen < 2.0 mg/dL (<2.0) 09/10/16 07:20 Ur Leukocyte Esterase Neg (Negative) 09/10/16 07:20 Urine WBC (Auto) 1.0 /HPF (0.0-6.0) 09/10/16 07:20 Urine RBC (Auto) 1.0 /HPF (0.0-6.0) 09/10/16 07:20 U Epithel Cells (Auto) < 1.0 /HPF (0-13.0) 09/10/16 07:20 Urine Mucus Few /HPF 09/10/16 07:20 Urine Creatinine 156.2 mg/dL (0.1-20.0) H 09/10/16 07:20 Urine Sodium 38 mEq/L 09/10/16 07:20
[2016-09-14] MEDS: MAG-OX PO SCH (10:30)
[2016-09-14] MEDS: DELTASONE PO SCH (10:30)
[2016-09-14] MEDS: FLOMAX PO SCH (10:30)
[2016-09-14] MEDS: DORZOLAMIDE OU SCH ×2 (10:31→22:51)
[2016-09-14] MEDS ORDERED: MILK OF MAGNESIA PO PRN (10:59)
--- NOTE | 2016-09-14 11:24 | Progress Note ---
Assessment and Plan - Patient Problems (1) Acute on chronic renal insufficiency Current Visit: Yes Status: Acute Plan to address problem: Renal function stable with Cr at 2.1mg/dl, close to baseline avoid nephrotoxins, NSAIDs, IV contrast (2) Hyperkalemia Current Visit: Yes Status: Acute Plan to address problem: resolved (3) Hyponatremia Current Visit: Yes Status: Acute Plan to address problem: Depletional hyponatremia. Na improved with volume repletion (4) Hypertensive chronic kidney disease with stage 1 through stage 4 chronic kidney disease, or unspecified chronic kidney disease Current Visit: Yes Status: Acute Plan to address problem: Monitor BP off meds for now. 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 since renal function stable at baseline, will resume colchicine 0.6mg po qd. Subjective Date of service: 09/14/16 Interval history: pt awake, alert, improving L knee pain. c/o constipation Objective - Vital Signs Vital signs: Vital Signs - 12hr 09/13/16 09/14/16 09/14/16 23:30 03:46 04:00 Temperature 98.5 F 97.7 F Pulse Rate [ 82 58 L Right] Respiratory 20 20 Rate Respiratory 20 Rate [Left Knee ] Respiratory 20 Rate [Right Knee] Blood Pressure 129/74 121/69 [Right Arm] O2 Sat by Pulse 94 97 Oximetry 09/14/16 08:00 Temperature 98 F Pulse Rate [ 98 H Right] Respiratory 22 Rate Respiratory Rate [Left Knee ] Respiratory Rate [Right Knee] Blood Pressure 126/80 [Right Arm] O2 Sat by Pulse 96 Oximetry - General Appearance General appearance: well-developed, well-nourished, appears stated age EENT: ATNC, PERRL, mucous membranes moist Neck: no JVD Respiratory: Present: Clear to Ascultation Cardiology: regular, S1S2 Gastrointestinal: normal, normoactive bowel sounds Integumentary: no rash, other (b/l knee warmth, swelling L > R ) Neurologic: no focal deficit, alert and oriented x3, strength 5/5, CN 3-12 intact Psychiatric: mood/affect appropriate, cooperative - Lab 09/13/16 04:54 09/13/16 04:54 Most recent lab results Calcium 8.9 mg/dL (8.4-10.2) 09/13/16 04:54 Magnesium 1.80 mg/dL (1.7-2.3) 09/13/16 04:54 Urine Creatinine 156.2 mg/dL (0.1-20.0) H 09/10/16 07:20 Urine Sodium 38 mEq/L 09/10/16 07:20
[2016-09-14] MEDS: COLCRYS PO SCH (15:14)
[2016-09-14] MEDS ORDERED: COUMADIN PO SCH (17:00)
[2016-09-14] MEDS: XALATAN 0.005% OU SCH (17:08)
--- NOTE | 2016-09-14 17:30 | Consultation ---
History of Present Illness - Reason for Consult Consult date: 09/14/16 - History of Present Illness Patient seen/examined, labs reviewed, resting in bed.No new issues at this time. 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 denies: smoking (smoking about 4 years ago), alcohol abuse (with drinking alcohol about 4-5 years ago), prescription drug abuse Family history: CAD (Father of acute myocardial infarction at 62 he had peripheral vascular disease. One brother of heart disease he had hypertension and end-stage renal disease on dialysis), cancer (one sister of metastatic breast cancer following recurrence), diabetes, hypertension (one sister has diabetes and hypertension she is 82 years old and another sister has hyperlipidemia), other (other at age 96 of natural causes) Medications and Allergies Allergies Allergy/AdvReac Type Severity Reaction Status Date / Time No Known Allergies Allergy Verified 07/27/16 07:52 Home Medications Medication Instructions Recorded Confirmed Last Taken Type Hydrochlorothiazide 12.5 mg PO QDAY 02/05/13 09/09/16 09/09/16 10:00 History Insulin Aspart Prot/Aspart(Nf) 45 unit SQ QPM 02/05/13 09/09/16 11/23/14 History [NovoLOG Mix 70/30 VIAL] Insulin Aspart Prot/Aspart(Nf) 70 units SC QAM 02/05/13 09/09/16 09/07/16 10:00 History [NovoLOG Mix 70/30 VIAL] Lisinopril [Zestril TAB] 20 mg PO QDAY 02/05/13 09/09/16 09/09/16 10:00 History Simvastatin 40 mg PO QHS 02/05/13 09/09/16 09/08/16 18:00 History metFORMIN [Glucophage] 500 mg PO BID 02/05/13 09/09/16 09/09/16 10:00 History Colchicine [Colcrys] 0.6 mg PO BID #10 tab 09/21/15 09/09/16 Unknown Rx Dexamethasone [Decadron] 4 mg PO DAILY #5 tablet 09/21/15 09/09/16 Unknown Rx Febuxostat (Nf) [Uloric (Nf)] 40 mg PO PRN 09/21/15 09/09/16 Unknown History HYDROcodone/APAP 5-325 [[place] 1 each PO Q6HR PRN #12 tablet 09/21/15 09/09/16 Unknown Rx 5/325] Insulin Lispro [HumaLOG VIAL] 3 units SQ AC 09/21/15 09/09/16 Unknown History [place]-3/Dha/Epa/Fish Oil [[place]-3 1 gram PO DAILY 09/21/15 09/09/16 09/08/16 18: 00 History Fish Oil 1,000 mg Sftg] Tamsulosin [Flomax] 0.4 mg PO DAILY 09/21/15 09/09/16 09/08/16 21:00 History Warfarin [Coumadin] 0.5 tab PO 2XW 09/21/15 09/09/16 09/08/16 19:00 History Warfarin [Coumadin] 3 tab PO 5XW 09/21/15 09/09/16 09/08/16 19:00 History Acetaminophen [Acetaminophen TAB] 500 mg PO Q6HR PRN #25 tablet 05/28/16 Unknown Rx Cyclobenzaprine [Flexeril] 10 mg PO TID PRN #12 tablet 05/28/16 09/09/16 Unknown Rx Ibuprofen [Motrin 600 MG tab] 600 mg PO Q8H PRN #15 tablet 07/27/16 09/09/16 Unknown Rx predniSONE [Deltasone] 40 mg PO QDAY 5 Days 07/27/16 09/09/16 Unknown Rx Dorzolamide HCl [Dorzolamide HCl] 1 drop OU BID 09/10/16 09/10/16 09/09/16 History Latanoprost 0.005% [Xalatan 0.005%] 1 drop OU QPM 09/10/16 09/10/16 09/09/16 21: 00 History Active Meds: Active Medications Acetaminophen (Tylenol) 650 mg PO Q4H PRN PRN Reason: Pain MILD(1-3)/Fever >100.5/BARILLAS Acetaminophen/Hydrocodone Bitart ([place] 5/325) 1 each PO Q6HR PRN PRN Reason: Pain Last Admin: 09/13/16 18:02 Dose: 1 each Albuterol (Proventil) 2.5 mg IH Q4HRT PRN PRN Reason: Shortness Of Breath Colchicine (Colcrys) 0.6 mg PO QDAY [facility] Last Admin: 09/14/16 15:14 Dose: 0.6 mg Cyclobenzaprine HCl (Flexeril) 10 mg PO TID PRN PRN Reason: Muscle Spasm Last Admin: 09/12/16 10:27 Dose: 10 mg Insulin Aspart (Novolog) 0 units SUB-Q ACHS [facility] PRN Reason: Protocol Last Admin: 09/14/16 17:08 Dose: 4 units Insulin Human Isoph/Insulin Regular (Novolin 70/30) 20 unit SUB-Q BIDDIAB [facility] Last Admin: 09/14/16 17:09 Dose: 20 unit Latanoprost (Xalatan 0.005%) 1 drops OU QPM [facility] Last Admin: 09/14/16 17:08 Dose: 1 drops Magnesium Hydroxide (Milk Of Magnesia) 30 ml PO QDAY PRN PRN Reason: Constipation Last Admin: 09/14/16 13:22 Dose: 30 ml Magnesium Oxide (Mag-Ox) 400 mg PO QDAY [facility] Last Admin: 09/14/16 10:30 Dose: 400 mg Miscellaneous Medication (Dorzolamide) 1 drop OU BID [facility] Last Admin: 09/14/16 10:31 Dose: 1 drop Ondansetron HCl (Zofran) 4 mg IV Q8H PRN PRN Reason: N/V unrelieved by Reglan Prednisone (Deltasone) 20 mg PO QDAY [facility] Last Admin: 09/14/16 10:30 Dose: 20 mg Simvastatin (Zocor) 40 mg PO QHS [facility] Last Admin: 09/13/16 23:21 Dose: 40 mg Sodium Bicarbonate (Sodium Bicarbonate) 650 mg PO TID [facility] Last Admin: 09/14/16 13:22 Dose: 650 mg Tamsulosin HCl (Flomax) 0.4 mg PO DAILY [facility] Last Admin: 09/14/16 10:30 Dose: 0.4 mg Warfarin Sodium (Coumadin Pharmacy To Dose) 1 each PO PKCONSULT [facility] PRN Reason: Protocol Warfarin Sodium (Coumadin) 15 mg PO DAILY@1700 [facility] Last Admin: 09/14/16 17:08 Dose: 15 mg Review of Systems Constitutional: chronic pain Exam - Constitutional Vitals: Temp Pulse Resp BP Pulse Ox 98.3 F 100 H 22 130/78 97 09/14/16 16:19 09/14/16 16:19 09/14/16 16:19 09/14/16 16:19 09/14/16 16:19 General appearance: Present: mild distress, well-nourished - EENT Eyes: Present: PERRL ENT: hearing intact, clear oral mucosa - Neck Neck: Present: supple, normal ROM - Respiratory Respiratory effort: normal Respiratory: bilateral: CTA - Cardiovascular Heart Sounds: Present: S1 & S2. Absent: rub, click - Extremities Extremities: pulses symmetrical, No edema Peripheral Pulses: within normal limits - Abdominal General gastrointestinal: Present: soft, non-tender, non-distended, normal bowel sounds Male genitourinary: Present: deferred - Rectal Rectal Exam: deferred - Integumentary Integumentary: Present: clear, warm, dry - Musculoskeletal Musculoskeletal: gait normal, strength equal bilaterally - Psychiatric Psychiatric: appropriate mood/affect, intact judgment & insight - Neurologic Neurologic: CNII-XII intact, moves all extremities Results - Labs CBC & Chem 7: 09/13/16 04:54 09/13/16 04:54 Labs: Abnormal lab results 09/13/16 09/13/16 09/14/16 Range/Units 16:48 21:36 05:34 PT (12.2-14.9) Sec. INR (0.87-1.13) POC Glucose 211 H 329 H 303 H (70-105) 09/14/16 09/14/16 09/14/16 Range/Units 07:03 11:43 15:58 PT 17.2 H (12.2-14.9) Sec. INR 1.33 H (0.87-1.13) POC Glucose 247 H 285 H (70-105) Assessment and Plan - Patient Problems (1) Acute on chronic renal insufficiency Current Visit: Yes Status: Acute Plan to address problem: Hydration., labs. (2) Type 2 diabetes mellitus with diabetic chronic kidney disease Current Visit: Yes Status: Acute Qualifiers: Diabetes mellitus care home insulin use: D Chronic kidney disease stage: C Plan to address problem: BG control. (3) Hypotension Current Visit: Yes Status: Acute Qualifiers: Hypotension type: H Trimester: T Plan to address problem: Hydration, adjust BP meds. (4) Hypercoagulable state Current Visit: Yes Status: Acute Plan to address problem: Monitor ,and control PT/INR, with coumadin. Still at 1.33.Not sure if ortho is going to do any procedure. (5) Joint effusion of knee Current Visit: Yes Status: Acute Plan to address problem: IR to tap, and send fluid for study. same as above.
[2016-09-14] MEDS ORDERED: XYLOCAINE 1% 20 mL INFILTRATI ONE (18:03)
--- NOTE | 2016-09-14 18:40 | Progress Note ---
Assessment and Plan Left knee pain secondary to osteoarthritis Plan - the patient was given a Depo-Medrol injection today without complications we'll follow with you thanks Subjective Date of service: 09/14/16 Interval history: Still complains of left knee pain states he got up today walked in the hallway his therapy Objective Vital signs: Vital Signs - 12hr 09/14/16 09/14/16 09/14/16 08:00 12:26 16:19 Temperature 98 F 98.3 F 98.3 F Pulse Rate [ 98 H 100 H 100 H Right] Respiratory 22 20 22 Rate Blood Pressure 126/80 130/78 130/78 [Right Arm] O2 Sat by Pulse 96 98 97 Oximetry - Labs CBC & BMP: 09/13/16 04:54 09/13/16 04:54 Labs: Abnormal lab results 09/13/16 09/13/16 09/14/16 Range/Units 16:48 21:36 05:34 PT (12.2-14.9) Sec. INR (0.87-1.13) POC Glucose 211 H 329 H 303 H (70-105) 09/14/16 09/14/16 09/14/16 Range/Units 07:03 11:43 15:58 PT 17.2 H (12.2-14.9) Sec. INR 1.33 H (0.87-1.13) POC Glucose 247 H 285 H (70-105)
[2016-09-14] MEDS: ZOCOR PO SCH (22:50)
[2016-09-15 06:35] LABS: INR 1.9 (0.87-1.13)
[2016-09-15 06:39] LABS: BUN/Creatinine Ratio 31.66; Potassium 4.2 mmol/L (3.6-5.0)
[2016-09-15] MEDS: NOVOLOG SUB-Q SCH ×2 (08:00→12:00)
--- NOTE | 2016-09-15 08:05 | Progress Note ---
Hospitalist Physical - Constitutional Vitals: Temp Pulse Resp BP Pulse Ox 98.5 F 61 18 154/80 92 09/15/16 04:00 09/15/16 04:00 09/15/16 04:00 09/15/16 04:00 09/14/16 20:44 General appearance: Present: no acute distress, well-nourished Results - Labs CBC & Chem 7: 09/13/16 04:54 09/15/16 05:47 Labs: Laboratory Last Values WBC 9.5 K/mm3 (4.5-11.0) 09/13/16 04:54 RBC 3.44 M/mm3 (3.65-5.03) L 09/13/16 04:54 Hgb 9.5 gm/dl (11.8-15.2) L 09/13/16 04:54 Hct 29.9 % (35.5-45.6) L 09/13/16 04:54 MCV 87 fl (84-94) 09/13/16 04:54 MCH 28 pg (28-32) 09/13/16 04:54 MCHC 32 % (32-34) 09/13/16 04:54 RDW 18.3 % (13.2-15.2) H 09/13/16 04:54 Plt Count 321 K/mm3 (140-440) 09/13/16 04:54 Lymph % (Auto) Pattern Designer 09/13/16 04:54 [place] % (Auto) Pattern Designer 09/13/16 04:54 Eos % (Auto) Pattern Designer 09/13/16 04:54 Baso % (Auto) Pattern Designer 09/13/16 04:54 Lymph # Pattern Designer 09/13/16 04:54 [place] # Pattern Designer 09/13/16 04:54 Eos # Pattern Designer 09/13/16 04:54 Baso # Pattern Designer 09/13/16 04:54 Seg Neutrophils % Pattern Designer 09/13/16 04:54 Seg Neutrophils # Pattern Designer 09/13/16 04:54 PT 21.8 Sec. (12.2-14.9) H 09/15/16 05:47 INR 1.90 (0.87-1.13) H 09/15/16 05:47 APTT 33.9 Sec. (24.2-36.6) 09/09/16 12:42 Sodium 137 mmol/L (137-145) 09/15/16 05:47 Potassium 4.2 mmol/L (3.6-5.0) 09/15/16 05:47 Chloride 102.0 mmol/L (98-107) 09/15/16 05:47 Carbon Dioxide 20 mmol/L (22-30) L 09/15/16 05:47 Anion Gap 19 mmol/L 09/15/16 05:47 BUN 57 mg/dL (9-20) H 09/15/16 05:47 Creatinine 1.8 mg/dL (0.8-1.5) H 09/15/16 05:47 Estimated GFR 46 ml/min 09/15/16 05:47 BUN/Creatinine Ratio 31.66 % 09/15/16 05:47 Glucose 202 mg/dL (75-100) H 09/15/16 05:47 POC Glucose 235 (70-105) H 09/15/16 06:43 Lactic Acid 1.50 mmol/L (0.7-2.0) 09/09/16 15:52 Uric Acid 11.8 mg/dL (3.5-7.6) H 09/11/16 21:17 Calcium 9.0 mg/dL (8.4-10.2) 09/15/16 05:47 Magnesium 1.80 mg/dL (1.7-2.3) 09/13/16 04:54 Total Bilirubin 0.30 mg/dL (0.1-1.2) 09/09/16 12:42 AST 11 units/L (5-40) 09/09/16 12:42 ALT 10 units/L (7-56) 09/09/16 12:42 Alkaline Phosphatase 59 units/L (35-129) 09/09/16 12:42 Total Protein 6.7 g/dL (6.3-8.2) 09/09/16 12:42 Albumin 3.7 g/dL (3.9-5) L 09/09/16 12:42 Albumin/Globulin Ratio 1.2 % 09/09/16 12:42 Urine Color Yellow (Yellow) 09/10/16 07:20 Urine Turbidity Clear (Clear) 09/10/16 07:20 Urine pH 5.0 (5.0-7.0) 09/10/16 07:20 Ur Specific [place] 1.010 (1.003-1.030) 09/10/16 07:20 Urine Protein <15 mg/dl mg/dL (Negative) 09/10/16 07:20 Urine Glucose (UA) Neg mg/dL (Negative) 09/10/16 07:20 Urine Ketones Neg mg/dL (Negative) 09/10/16 07:20 Urine Blood Neg (Negative) 09/10/16 07:20 Urine Nitrite Neg (Negative) 09/10/16 07:20 Urine Bilirubin Neg (Negative) 09/10/16 07:20 Urine Urobilinogen < 2.0 mg/dL (<2.0) 09/10/16 07:20 Ur Leukocyte Esterase Neg (Negative) 09/10/16 07:20 Urine WBC (Auto) 1.0 /HPF (0.0-6.0) 09/10/16 07:20 Urine RBC (Auto) 1.0 /HPF (0.0-6.0) 09/10/16 07:20 U Epithel Cells (Auto) < 1.0 /HPF (0-13.0) 09/10/16 07:20 Urine Mucus Few /HPF 09/10/16 07:20 Urine Creatinine 156.2 mg/dL (0.1-20.0) H 09/10/16 07:20 Urine Sodium 38 mEq/L 09/10/16 07:20
[2016-09-15] MEDS: SODIUM BICARBONATE PO SCH ×2 (08:27→13:49)
[2016-09-15 08:34] VITALS: BP 136/78
[2016-09-15] MEDS: MAG-OX PO SCH (10:00)
[2016-09-15] MEDS: DELTASONE PO SCH (10:00)
[2016-09-15] MEDS: FLOMAX PO SCH (10:00)
[2016-09-15] MEDS: COLCRYS PO SCH (10:01)
[2016-09-15] MEDS: DORZOLAMIDE OU SCH (10:01)
--- NOTE | 2016-09-15 11:07 | Discharge Summary ---
Providers - Providers Date of Admission: 09/09/16 15:00 Date of discharge: 09/15/16 Attending physician: MICHAEL STONE 09/12/16 19:57 Consult to Physician [CONS] Routine Consulting Provider: VERENICE NAJERA Reason For Exam: left knee OA/large effusion Place consult to:: DR. NAJERA Notified:: OFFICE Phone number called:: [phone] Was contact made?: Yes If yes, spoke with:: MICHAEL Time called:: 09:08 09/12/16 20:01 Physical Therapy Evaluation and Treat [CONS] Routine Comment: Reason For Exam: debility/osteoarthritis Primary care physician: TAX ASSISTANT Hospitalization Condition: Stable Disposition: DC/[place]-06 HOME UNDER HOME [facility] Core Measure Documentation - Palliative Care Palliative Care/ Comfort Measures: Not Applicable - Core Measures Any of the following diagnoses?: none Exam - Constitutional Vitals: Temp Pulse Resp BP Pulse Ox 97.9 F 62 20 136/78 98 09/15/16 08:00 09/15/16 08:00 09/15/16 08:00 09/15/16 08:00 09/15/16 08:00 General appearance: Present: no acute distress, well-nourished, obese - EENT Eyes: Present: PERRL, EOM intact - Neck Neck: Present: supple, normal ROM - Respiratory Respiratory effort: normal Respiratory: bilateral: diminished, negative: rales, rhonchi, wheezing - Cardiovascular Rhythm: regular Heart Sounds: Present: S1 & S2 - Extremities Extremities: no ischemia, No edema, abnormal (osteoarthritis left knee) - Abdominal General gastrointestinal: Present: soft, non-tender, non-distended, normal bowel sounds - Integumentary Integumentary: Present: clear, warm, dry - Musculoskeletal Musculoskeletal: strength equal bilaterally - Psychiatric Psychiatric: appropriate mood/affect, cooperative - Neurologic Neurologic: CNII-XII intact, moves all extremities Plan Activity: advance as tolerated, fall precautions Diet: low salt, diabetic Special Instructions: physical therapy Additional Instructions: check INR in 2 days at PMD office. Target INR 2-3 Follow up with: BROOKE BUCHANAN MD [Primary Care Provider] - 3-5 Days ALEXANDRA ALMARAZ DO [Staff Physician] - 7 Days VERENICE NAJERA MD [Staff Physician] - 7 Days Forms: Warfarin Discharge Instruction Prescriptions: predniSONE [Deltasone] 20 mg PO QDAY #7 tablet Warfarin [Coumadin] 10 mg PO QDAY #14 tablet
--- NOTE | 2016-09-15 13:54 | Progress Note ---
Assessment and Plan - Patient Problems (1) Acute on chronic renal insufficiency Current Visit: Yes Status: Acute Plan to address problem: Renal function stable with Cr at 1.8mg/dl, close to baseline avoid nephrotoxins, NSAIDs, IV contrast. stable for discharge from renal stand point with outpt f/u (2) Hyperkalemia Current Visit: Yes Status: Acute Plan to address problem: resolved (3) Hyponatremia Current Visit: Yes Status: Acute Plan to address problem: Depletional hyponatremia. Na improved with volume repletion (4) Hypertensive chronic kidney disease with stage 1 through stage 4 chronic kidney disease, or unspecified chronic kidney disease Current Visit: Yes Status: Acute Plan to address problem: Monitor BP off meds for now. (5) Type 2 diabetes mellitus with diabetic chronic kidney disease Current Visit: Yes Status: Acute Qualifiers: Diabetes mellitus longterm insulin use: D Chronic kidney disease stage: C Plan to address problem: Blood sugar management by primary attending (6) Metabolic acidosis Current Visit: Yes Status: Acute Plan to address problem: cont Na bicarb 650mg po tid (7) Joint effusion of knee Current Visit: Yes Status: Acute Plan to address problem: pt with h/o gout. cont colchicine 0.6mg po qd. Subjective Date of service: 09/15/16 Interval history: pt awake, alert, improving L knee pain. c/o constipation Objective - Vital Signs Vital signs: Vital Signs - 12hr 09/15/16 09/15/16 04:00 08:00 Temperature 98.5 F 97.9 F Pulse Rate [ 61 62 Right] Respiratory 18 20 Rate Blood Pressure 154/80 136/78 [Right Arm] O2 Sat by Pulse 98 Oximetry - General Appearance General appearance: well-developed, well-nourished, appears stated age EENT: ATNC, PERRL, mucous membranes moist Neck: no JVD Respiratory: Present: Clear to Ascultation Cardiology: regular, S1S2 Gastrointestinal: normal, normoactive bowel sounds Integumentary: no rash, other (no edema ) Neurologic: no focal deficit, alert and oriented x3, strength 5/5, CN 3-12 intact Psychiatric: mood/affect appropriate, cooperative - Lab 09/13/16 04:54 09/15/16 05:47 Most recent lab results Calcium 9.0 mg/dL (8.4-10.2) 09/15/16 05:47 Magnesium 1.80 mg/dL (1.7-2.3) 09/13/16 04:54 Urine Creatinine 156.2 mg/dL (0.1-20.0) H 09/10/16 07:20 Urine Sodium 38 mEq/L 09/10/16 07:20
== END 2016-09-15 14:30 | disposition home health service (06) | DRG 314 ==
LOC: ED 11:58 → 3A 15:00
PROVIDERS: ADMIT Internal Medicine; ATTEND Internal Medicine
DX: I95.9 Hypotension, unspecified (principal); N17.0 Acute kidney failure with tubular necrosis; E87.1 Hypo-osmolality and hyponatremia; D68.59 Other primary thrombophilia; E87.2 Acidosis; I82.501 Chronic embolism and thrombosis of unspecified deep veins of right lower extremity; E87.5 Hyperkalemia; I13.10 Hypertensive heart and chronic kidney disease without heart failure, with stage 1 through stage 4 chronic kidney disease, or unspecified chronic kidney disease; E11.22 Type 2 diabetes mellitus with diabetic chronic kidney disease; E66.9 Obesity, unspecified; Z71.3 Dietary counseling and surveillance; E78.00 Pure hypercholesterolemia, unspecified; Z87.891 Personal history of nicotine dependence; Z79.4 Long term (current) use of insulin; Z83.3 Family history of diabetes mellitus; Z82.49 Family history of ischemic heart disease and other diseases of the circulatory system; N18.3 Chronic kidney disease, stage 3 (moderate); Z68.31 Body mass index [BMI] 31.0-31.9, adult; E83.42 Hypomagnesemia; M17.12 Unilateral primary osteoarthritis, left knee; M25.462 Effusion, left knee; Z86.711 Personal history of pulmonary embolism
CPT/HCPCS: 36415; 76770; 80048; 80053; 81001; 82140; 82570; 82962; 83735; 84132; 84300; 84550; 85025; 85610; 85730; 93005; 93010; G8978-GP; G8979-GP; J1040; J1650; J1815; J7512

== ENCOUNTER 2017-01-01 12:25 | Emergency (ER) | payer MEDICARE ==
--- NOTE | 2017-01-01 13:21 | Emergency Department Report ---
ED General Adult HPI - General Chief complaint: High BP Stated complaint: HIGH BP Time Seen by Provider: 01/01/17 12:55 Source: patient Mode of arrival: Ambulatory Limitations: No Limitations - History of Present Illness Initial comments: 66-year-old male past medical history hypertension, history of PE and before meals, hyperlipidemia presents for complaint of high blood pressure in the 180s systolic this morning. Patient states that he checked his blood pressure at home it was 189 systolic over 95 diastolic. Patient states he then went to a local pharmacy to recheck his blood pressure there. Was consistent with his blood pressure reading at home and was advised by the pharmacist to come to the emergency department for evaluation. On exam patient is awake alert and oriented 3 and denies the following headache dizziness or blurry vision abdominal pain chest pain palpitations shortness of breath, lower extremity edema bilaterally. Patient states he is taking lisinopril 40 mg daily as per his PMD. Has follow-up with his PMD next week. Is accompanied by his sister at bedside. States that he refilled his medications at the pharmacy before coming to the ED this morning. States he did not take his lisinopril today. -: This morning Associated Symptoms: denies other symptoms Treatments Prior to Arrival: none - Related Data Home Medications Medication Instructions Recorded Confirmed Last Taken Hydrochlorothiazide 12.5 mg PO QDAY 02/05/13 09/09/16 09/09/16 10:00 Insulin Aspart Prot/Aspart(Nf) 45 unit SQ QPM 02/05/13 09/09/16 11/23/14 [NovoLOG Mix 70/30 VIAL] Insulin Aspart Prot/Aspart(Nf) 70 units SC QAM 02/05/13 09/09/16 09/07/16 10:00 [NovoLOG Mix 70/30 VIAL] Lisinopril [Zestril TAB] 20 mg PO QDAY 02/05/13 09/09/16 09/09/16 10:00 Simvastatin 40 mg PO QHS 02/05/13 09/09/16 09/08/16 18:00 metFORMIN [Glucophage] 500 mg PO BID 02/05/13 09/09/16 09/09/16 10:00 Febuxostat (Nf) [Uloric (Nf)] 40 mg PO PRN 09/21/15 09/09/16 Unknown Insulin Lispro [HumaLOG VIAL] 3 units SQ AC 09/21/15 09/09/16 Unknown [place]-3/Dha/Epa/Fish Oil [[place]-3 1 gram PO DAILY 09/21/15 09/09/16 09/08/16 18: 00 Fish Oil 1,000 mg Sftg] Tamsulosin [Flomax] 0.4 mg PO DAILY 09/21/15 09/09/16 09/08/16 21:00 Dorzolamide HCl 1 drop OU BID 09/10/16 09/10/16 09/09/16 Latanoprost 0.005% [Xalatan 0.005%] 1 drop OU QPM 09/10/16 09/10/16 09/09/16 21: 00 Previous Rx's Medication Instructions Recorded Last Taken Type Colchicine [Colcrys] 0.6 mg PO BID #10 tab 09/21/15 Unknown Rx Dexamethasone [Decadron] 4 mg PO DAILY #5 tablet 09/21/15 Unknown Rx HYDROcodone/APAP 5-325 [[place] 1 each PO Q6HR PRN #12 tablet 09/21/15 Unknown Rx 5-325 mg TAB] Acetaminophen [Acetaminophen TAB] 500 mg PO Q6HR PRN #25 tablet 05/28/16 Unknown Rx Cyclobenzaprine [Flexeril 10 MG 10 mg PO TID PRN #12 tablet 05/28/16 Unknown Rx TAB] Ibuprofen [Motrin 600 MG tab] 600 mg PO Q8H PRN #15 tablet 07/27/16 Unknown Rx Warfarin [Coumadin] 10 mg PO QDAY #14 tablet 09/15/16 Unknown Rx predniSONE [Deltasone] 20 mg PO QDAY #7 tablet 09/15/16 Unknown Rx Allergies Allergy/AdvReac Type Severity Reaction Status Date / Time No Known Allergies Allergy Verified 07/27/16 07:52 ED Review of Systems ROS: Stated complaint: HIGH BP Other details as noted in HPI Constitutional: denies: chills, fever Eyes: denies: eye pain, eye discharge, vision change ENT: denies: ear pain, throat pain Respiratory: denies: cough, shortness of breath, wheezing Cardiovascular: denies: chest pain, palpitations Endocrine: no symptoms reported Gastrointestinal: denies: abdominal pain, nausea, diarrhea Genitourinary: denies: urgency, dysuria Musculoskeletal: denies: back pain, joint swelling, arthralgia Skin: denies: rash, lesions Neurological: denies: headache, weakness, paresthesias Psychiatric: denies: anxiety, depression Hematological/Lymphatic: denies: easy bleeding, easy bruising ED Past Medical Hx - Past Medical History Hx Hypertension: Yes Hx Heart Attack/AMI: No Hx Congestive Heart Failure: No Hx Diabetes: Yes Hx Deep Vein Thrombosis: Yes Hx Pulmonary Embolism: Yes Hx Liver Disease: No Hx Renal Disease: No Hx Arthritis: Yes Hx Seizures: No Hx Kidney Stones: No Hx Asthma: No Hx COPD: No Hx Tuberculosis: No Hx Dementia: No Hx HIV: No Additional medical history: high cholesterol. gout - Surgical History Hx Coronary Stent: No Hx Pacemaker: No Hx Internal Defibrillator: No - Social History Smoking Status: Former Smoker Substance Use Type: None - Medications Home Medications: Home Medications Medication Instructions Recorded Confirmed Last Taken Type Hydrochlorothiazide 12.5 mg PO QDAY 02/05/13 09/09/16 09/09/16 10:00 History Insulin Aspart Prot/Aspart(Nf) 45 unit SQ QPM 02/05/13 09/09/16 11/23/14 History [NovoLOG Mix 70/30 VIAL] Insulin Aspart Prot/Aspart(Nf) 70 units SC QAM 02/05/13 09/09/16 09/07/16 10:00 History [NovoLOG Mix 70/30 VIAL] Lisinopril [Zestril TAB] 20 mg PO QDAY 02/05/13 09/09/16 09/09/16 10:00 History Simvastatin 40 mg PO QHS 02/05/13 09/09/16 09/08/16 18:00 History metFORMIN [Glucophage] 500 mg PO BID 02/05/13 09/09/16 09/09/16 10:00 History Colchicine [Colcrys] 0.6 mg PO BID #10 tab 09/21/15 09/09/16 Unknown Rx Dexamethasone [Decadron] 4 mg PO DAILY #5 tablet 09/21/15 09/09/16 Unknown Rx Febuxostat (Nf) [Uloric (Nf)] 40 mg PO PRN 09/21/15 09/09/16 Unknown History HYDROcodone/APAP 5-325 [[place] 1 each PO Q6HR PRN #12 tablet 09/21/15 09/09/16 Unknown Rx 5-325 mg TAB] Insulin Lispro [HumaLOG VIAL] 3 units SQ AC 09/21/15 09/09/16 Unknown History [place]-3/Dha/Epa/Fish Oil [[place]-3 1 gram PO DAILY 09/21/15 09/09/16 09/08/16 18: 00 History Fish Oil 1,000 mg Sftg] Tamsulosin [Flomax] 0.4 mg PO DAILY 09/21/15 09/09/16 09/08/16 21:00 History Acetaminophen [Acetaminophen TAB] 500 mg PO Q6HR PRN #25 tablet 05/28/16 Unknown Rx Cyclobenzaprine [Flexeril 10 MG 10 mg PO TID PRN #12 tablet 05/28/16 09/09/16 Unknown Rx TAB] Ibuprofen [Motrin 600 MG tab] 600 mg PO Q8H PRN #15 tablet 07/27/16 09/09/16 Unknown Rx Dorzolamide HCl 1 drop OU BID 09/10/16 09/10/16 09/09/16 History Latanoprost 0.005% [Xalatan 0.005%] 1 drop OU QPM 09/10/16 09/10/16 09/09/16 21: 00 History Warfarin [Coumadin] 10 mg PO QDAY #14 tablet 09/15/16 Unknown Rx predniSONE [Deltasone] 20 mg PO QDAY #7 tablet 09/15/16 Unknown Rx ED Physical Exam - General Limitations: No Limitations General appearance: alert, in no apparent distress - Head Head exam: Present: atraumatic, normocephalic - Eye Eye exam: Present: normal appearance, PERRL, EOMI - ENT ENT exam: Present: mucous membranes moist - Neck Neck exam: Present: normal inspection - Respiratory Respiratory exam: Present: normal lung sounds bilaterally. Absent: respiratory distress - Cardiovascular Cardiovascular Exam: Present: regular rate, normal rhythm. Absent: systolic murmur, diastolic murmur, rubs, gallop - GI/Abdominal GI/Abdominal exam: Present: soft, normal bowel sounds - Rectal Rectal exam: Present: deferred - Extremities Exam Extremities exam: Present: normal inspection - Back Exam Back exam: Present: normal inspection - Neurological Exam Neurological exam: Present: alert, oriented X3, CN II-XII intact, normal gait - Psychiatric Psychiatric exam: Present: normal affect, normal mood - Skin Skin exam: Present: warm, dry, intact, normal color. Absent: rash ED Course Vital Signs 01/01/17 01/01/17 12:29 13:21 Temperature 97.4 F L Pulse Rate 63 80 Respiratory 20 20 Rate Blood Pressure 173/88 Blood Pressure 169/90 [Right] O2 Sat by Pulse 97 97 Oximetry ED Medical Decision Making - Medical Decision Making A/P: Concern for hypertension 1- blood pressure repeated in the ED, below 190 systolic and 100 diastolic twice. 2- pt just refilled his lisinopril 40mg 3-I called pts PMD office at [phone] and confirmed with certified legal secretary specialist what his BP meds are. Also on HCTZ 25mg qday. Pt states he has these meds at home. 4- patient is asymptomatic, no chest pain palpitations shortness of breath dizziness abdominal pain nausea headache. I specifically asked the patient about the symptoms and patient adamantly denied these symptoms. Patient was awake alert and oriented 3 fully lucid and conversant during exam. I refrred to [facility] for management and spoke w/ Dr. Armijo regarding this case. pt can f/uw as outpt with his PMD [email or web address] Critical care attestation.: If time is entered above; I have spent that time in minutes in the direct care of this critically ill patient, excluding procedure time. ED Disposition Clinical Impression: High blood pressure Qualifiers: Hypertension type: unspecified Qualified Code(s): I10 - Essential (primary) hypertension Disposition: - TO HOME OR SELFCARE Is pt being admited?: No Does the pt Need Aspirin: No Condition: Stable Instructions: Hypertension (ED) Referrals: ALEXANDRA ALMARAZ DO [Primary Care Provider] - 3-5 Days Time of Disposition: 13:46
[2017-01-01 13:22] VITALS: BP 169/90
[2017-01-01] MEDS ORDERED: ZESTRIL PO ONE (13:41)
== END 2017-01-01 13:52 | disposition home or self-care (01) ==
LOC: ED 12:25
DX: I10 Essential (primary) hypertension (principal); E11.9 Type 2 diabetes mellitus without complications; I82.409 Acute embolism and thrombosis of unspecified deep veins of unspecified lower extremity; I26.99 Other pulmonary embolism without acute cor pulmonale; M19.90 Unspecified osteoarthritis, unspecified site; E78.5 Hyperlipidemia, unspecified; Z87.891 Personal history of nicotine dependence; Z79.4 Long term (current) use of insulin; Z79.01 Long term (current) use of anticoagulants
CPT/HCPCS: 99282